=== PATIENT | female | born 1945 | race Two or more races ===

== ENCOUNTER 2018-01-09 09:00 | Outpatient (RCR) | payer OTHER ==
--- NOTE | 2018-01-06 09:13 | RS.OPPTEV2 ---
Date of Note: 01/02/18 Visit #: 1 Date of Evaluation: 01/02/18 Payer Source: MEDICARE Surgery Performed?: No Treatment Diagnosis: OA of spine, numbness and tingling B hands, pain B hands History of Condition/Mechanism of Injury:: pt reports began having burning/ electric pain B hands began in 05/2017 but has gotten much worse in last few weeks. Prior Level of Function.....Patient was independent with: ADL's, Self Care, Caregiving, Ambulation/Mobility, Community Integration/Access Functional Limitations: Self Care, Reaching, Pushing, Lifting, Carrying Current Subjective/complaints:: pt states that she has been having numbness, tingling as well as electric pain B hands. 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 Hx Home Medications: lisinopril, Vitamin D, Ibuprofen, aspirin, Patient's Goals: Decreased electric pain Pain Assessment - Pain Description Pain Location: B hands Pain Description: Burning Current Pain Intensity: 7/10 Functional Outcome Measure UE Functional Index: 52 (35%) - G Codes & Severity Modifier G Codes & Modifier: carrying, moving, and handling objects. Current CJ. Goal CI Source of G Code score: UE functional index Observation - Observation Inspection: R shld is elevated. LLE is longer Posture: Forward Head, Rounded Shoulders, Increased Thoracic Kyphosis, Decreased Lumbar Lordosis Gait - Gait Pattern General Gait Pattern Observation: Antalgic Gait Gait Comments: pt with antalgic gait due to L knee pain. pt states she is planning to have TKR when her hands are better. General Range of Motion: BUE WFL's. BLE WFL's except L knee due to pain Muscle Strength: RLE 5/5,. LLE hip flex 4+/5, knee flex/ext 3+/5, ankle DF/PF 4 +/5. BUE shld flex 3/5, elbow flex/ext 3+/5, decreased woods manager - ROM Cervical Spine Range of Motion Limitations: Soft Tissue Tightness, Muscle Weakness Comments: Cervical ROM WFL's with min pain with side bending. - Special Tests Foraminal Distraction: Negative Foraminal Compression: Negative Left, Negative Right State Pilot Strength Left Hand State Pilot Strength: 34 Right Hand State Pilot Strength: 38 Dynamometer Testing Position: 2nd Position Palpation Palpation Findings: Tenderness, Trigger Point (upper traps, along spine of scapula. ) Sensation - Sensation Right Lower Extremity: Intact/Normal Left Lower Extremity: Intact/Normal Comments: pt reports "electric"pain B hands along with n/t B hands Balance - Sitting Balance Static Sitting Balance: Normal Dynamic Sitting Balance: Normal - Standing Balance Static Standing Balance: Good Dynamic Standing Balance: Good - Heat/Cryotherapy Treatment: Hot Pack (cervical spine and shlds) Interventions - Exercise/Activities/Manual Therapy Exercises/Activities: pt performed cervical ROM, chin tucks, scapular retraction , shld shrugs Manual Therapy: n/a HOME EXERCISE PROGRAM: pt given written HEP including chin tucks, gentle cervical ROM, scapular retraction, shld shrugs - Charges Timed Code Treatment Minutes: 48 Total Treatment Time: 60 Procedures billed for this date of service:: eval med, hot pack EVALUATION COMPLEXITY LEVEL EVALUATION COMPLEXITY LEVEL: HISTORY: Medium (HTN, OA, pain B hands), EXAM OF BODY SYSTEMS: Medium (pain, decreased sensation, weakness), CLINICAL PRESENTATION: Medium (evolving), CLINICAL DECISION MAKING: Medium Assessment Assessment: pt presents with radiculopathy BUE, cervical pain, muscle weakness, due to cervical spurring and narrowing. Patient Education: Education of diagnosis, Home Exercise Program, Education of Plan of Care Rehab Potential: Good Short Term Goals Goal #1: pt report decreased pain B hands <5/10 Goal to be met by: 01/23/18 Goal #2: pt with ROM WFL's cervical spine with decreased pain Goal to be met by: 01/23/18 Cyber Defense Incident Responder Goals Goal #1: pt report decreased pain <4/10 BUE and cervical spine Goal to be met by: 02/13/18 Goal #2: pt report ability to perform functional activities with BUE with less pain Goal to be met by: 02/13/18 Goal #3: pt independent with HEP Goal to be met by: 02/13/18 Goal #4: Improvement in UE functional index score > 65 Goal to be met by: 02/13/18 Plan - Treatment to be Provided Procedures: Therapeutic Exercises, Therapeutic Activity, Neuromuscular Rehab, Manual Therapy, Massage, Patient Education Modalities: Electrical Stimulation, Ultrasound/Phonophoresis, Class IV Laser, Cryotherapy, Hot Packs - Treatment Plan Frequency: 2 X week Duration: 6 weeks ORDER # VISITS AND/OR THROUGH DATE: 02/13/18 - Treatment Code (1) Cervical radicular pain Code(s): M54.12 - RADICULOPATHY, CERVICAL REGION (2) Cervical stenosis of spinal canal Code(s): M48.02 - SPINAL STENOSIS, CERVICAL REGION (3) Muscle weakness Code(s): M62.81 - MUSCLE WEAKNESS (GENERALIZED)
--- NOTE | 2018-01-07 11:06 | RS.OPPTDN ---
Subjective Date of Note: 01/07/18 Visit #: 2 Date of Evaluation: 01/02/18 Payer Source: MEDICARE Treatment Diagnosis: OA of spine, numbness and tingling B hands, pain B hands Current Subjective/complaints:: Patient reports she has an MRI yesterday but does not have a f/u appt with physician until January. *Precautions: n/a Pain Assessment - Pain Description Pain Location: Bilateral hands, upper traps Pain Description: tingling B hands, soreness upper traps - Heat/Cryotherapy Treatment: Hot Pack ([id number] to the bilateral upper traps and base of cervical spine. Patient in sitting. ) Interventions - Exercise/Activities/Manual Therapy Exercises/Activities: Assisted cervical ROM with focus on lateral flexion. Active chin tucks, scapular retraction, shld shrugs. Isometric cervical retraction. Passive stretching of anterior chest with towel roll along mid thoracic spine. Total minutes of Exercise: 12mins Manual Therapy: Trigger point release to the bilateral traps, cervical paraspinals, scalenes, and posterior shoulder joint at infraspinatus. Manual therapy to mid scapular muscles to release tension. Total minutes of Manual Therapy: 12mins HOME EXERCISE PROGRAM: pt given written HEP including chin tucks, gentle cervical ROM, scapular retraction, shld shrugs. Isometric cervical retraction at wall with pillow. - Charges Timed Code Treatment Minutes: 24mins Total Treatment Time: 44mins Procedures billed for this date of service:: HP, MT, EX Assessment: Patient motivated to work on HEP. Will need to have MRI results to further plan progression of treatment. Patient Education: Body/Joint mechanics, Home Exercise Program, Home Safety Patient demonstrates compliance with HEP?: Yes Short Term Goals Goal #1: pt report decreased pain B hands <5/10 Goal to be met by: 01/23/18 Goal #2: pt with ROM WFL's cervical spine with decreased pain Goal to be met by: 01/23/18 M[facility] Goals Goal #1: pt report decreased pain <4/10 BUE and cervical spine Goal to be met by: 02/13/18 Goal #2: pt report ability to perform functional activities with BUE with less pain Goal to be met by: 02/13/18 Goal #3: pt independent with HEP Goal to be met by: 02/13/18 Progress towards goal: Progressing Goal #4: Improvement in UE functional index score > 65 Goal to be met by: 02/13/18 Plan PLAN OF CARE EXPIRES ON:: 02/13/18 ORDER # VISITS AND/OR THROUGH DATE: 02/13/18 PLAN: Progress with HEP following MRI results.
--- NOTE | 2018-01-09 09:43 | RS.CSNOTE ---
PT Case Note Date of Note: 01/08/18 Note: Spoke with Loulou with Loulou Holliday C2 TACTICAL ANALYSIS TECHNICIAN office and she stated that is was Ok to begin gentle cervical traction with patient.
--- NOTE | 2018-01-09 15:10 | RS.OPPTDN ---
Subjective Date of Note: 01/09/18 Visit #: 3 Date of Evaluation: 01/02/18 Payer Source: MEDICARE Treatment Diagnosis: OA of spine, numbness and tingling B hands, pain B hands Current Subjective/complaints:: Patient says her pain is severe to her neck and has tingling and numbness to all fingers on both hands. She says she is eager to try traction in order to gain relief. She says she has not had MRI results explained to her and would like to move her MD appointment closer so that she is able to hear the results. *Precautions: n/a Pain Assessment - Pain Description Pain Location: Patient does not rate, but says her neck bothers her all the time and has had difficulties for a long period of time. - Heat/Cryotherapy Treatment: Hot Pack (20 mins cervical in supine) - Traction Treatment Method: Mechanical, Intermittent, Cervical Patient Position: Supine Amount of Force Applied: 12 Hold Time: 25 Rest Time: 5 Duration of treatment: 12 Interventions - Exercise/Activities/Manual Therapy Exercises/Activities: Patient and spouse instructed in gentle ROM of cspine, she performs shoulder shrugs and scap adduction at EOB. Discussed traction indications/treatment and benefits. Manual Therapy: na HOME EXERCISE PROGRAM: pt given written HEP including chin tucks, gentle cervical ROM, scapular retraction, shld shrugs. Isometric cervical retraction at wall with pillow. - Charges Timed Code Treatment Minutes: 20 Total Treatment Time: 35 Procedures billed for this date of service:: hp, mechanical traction Assessment: Patient continues with moderate to severe cervical and UT pain with radicular symptoms to the bilateral hands. She appears attentive, along with , about receiving traction treatment. She will be attempting to gain a sooner appt with MD to discuss MRI results. She demetra traction well today at gentle poundage per Loulou Holliday. She verbalizes slight increase in tingling to the R hand, but is not enough to bother her. She may see improvement with progressing cervical traction. Patient Education: Education of diagnosis, Body/Joint mechanics, Home Exercise Program, Home Safety, Education of Plan of Care Short Term Goals Goal #1: pt report decreased pain B hands <5/10 Goal to be met by: 01/23/18 Goal #2: pt with ROM WFL's cervical spine with decreased pain Goal to be met by: 01/23/18 Mcfp Goals Goal #1: pt report decreased pain <4/10 BUE and cervical spine Goal to be met by: 02/13/18 Goal #2: pt report ability to perform functional activities with BUE with less pain Goal to be met by: 02/13/18 Goal #3: pt independent with HEP Goal to be met by: 02/13/18 Progress towards goal: Progressing Goal #4: Improvement in UE functional index score > 65 Goal to be met by: 02/13/18 Plan PLAN OF CARE EXPIRES ON:: 02/13/18 ORDER # VISITS AND/OR THROUGH DATE: 02/13/18 PLAN: Patient to continue with gentle traction as able
--- NOTE | 2018-01-10 14:24 | RS.CSNOTE ---
PT Case Note Date of Note: 01/10/18 Note: Received call from Loulou with DR. Miller and she stated Dr. Miller reviewed pt' s MRI and has decided to hold PT until we receive futher orders from him. Called pt and notified her that MD ordered to hold PT at this time and she verbalized understanding. Will await new order from .
--- NOTE | 2018-01-16 09:41 | RS.OPPTDC ---
Date of Discharge: 01/09/18 Date of Evaluation: 01/02/18 Number of Visits: 3 Treatment Diagnosis: OA of spine, numbness and tingling B hands, pain B hands Current Level of Function: pt continues with severe neck pain with radiating pain B hands. pt had MRI and awaiting MD appt to hear results. Current Complaints/Gains: pt continues with c/o "electric" pains in B hands. pt also noticing n/t foot. Pain Assessment - Pain Description Pain Location: neck radiating in hands Pain Description: Burning, Sharp Other Comments regarding Pain:: pt does not rate pain, however has pain constantly and limits her ability to perform daily activity. Functional Outcome Measure - G Codes & Severity Modifier G Codes & Modifier: carrying/moving goal CI. carrying/moving dc CJ Source of G Code score: functional ability and UE functional index Observation - Observation Posture: Forward Head, Rounded Shoulders, Increased Thoracic Kyphosis Handedness: Right Gait - Gait Pattern General Gait Pattern Observation: Antalgic Gait Gait Comments: antalgic gait due to pain in knee/hip General Range of Motion: BUE WFL's with pain. BLE WFL's Muscle Strength: Not tested on dc Interventions - Exercise/Activities/Manual Therapy Exercises/Activities: n/a Manual Therapy: na HOME EXERCISE PROGRAM: pt given written HEP including chin tucks, gentle cervical ROM, scapular retraction, shld shrugs. Isometric cervical retraction at wall with pillow. - Charges Timed Code Treatment Minutes: n/a Total Treatment Time: n/a Procedures billed for this date of service:: n/a Assessment Assessment: pt unable to meet goals due to dc per MD. pt MRI showed severe stenosis. MD ordered to stop PT. pt reports to PT on 01/16/18 that she is scheduled for surgery on 02/04/18. Patient Education: Home Exercise Program, Education of Plan of Care Rehab Potential: Fair Short Term Goals Goal #1: pt report decreased pain B hands <5/10 Goal to be met by: 01/23/18 Progress towards Goal:: Not Met Goal #2: pt with ROM WFL's cervical spine with decreased pain Goal to be met by: 01/23/18 Progress towards Goal:: Not Met Body Welder Goals Goal #1: pt report decreased pain <4/10 BUE and cervical spine Goal to be met by: 02/13/18 Progress towards goal: Not Met Goal #2: pt report ability to perform functional activities with BUE with less pain Goal to be met by: 02/13/18 Progress towards goal: Not Met Goal #3: pt independent with HEP Goal to be met by: 02/13/18 Progress towards goal: Not Met Goal #4: Improvement in UE functional index score > 65 Goal to be met by: 02/13/18 Progress towards goal: Not Met Plan Reason for Discharge:: ordered to dc PT.
== END 2018-01-22 ==
PROVIDERS: ATTEND Nurse Practitioner Family
DX: M47.9 Spondylosis, unspecified (principal); R20.0 Anesthesia of skin; R20.2 Paresthesia of skin; R52 Pain, unspecified

== ENCOUNTER 2018-03-24 09:00 | Outpatient (RCR) ==
--- NOTE | 2018-03-20 15:29 | RS.OPPTEV2 ---
Date of Note: 03/20/18 Visit #: 1 Date of Evaluation: 03/20/18 Payer Source: MEDICARE Surgery Performed?: Yes Procedure Performed: C3,4 and C4,5 anterior cervical discectomy with insertion of interbody arthrodesis. Date of Procedure: 02/04/18 Treatment Diagnosis: Neck pain, radicular UE pain, bilateral UE weakness, s/p surgery History of Condition/Mechanism of Injury:: Pt reports symptoms of burning/ electric pain B hands began in 05/2017. States symptoms continued to get worse. She reports that she had more tests, that found she had pressure on her spinal cord, and she was sent for surgery. Prior Level of Function.....Patient was independent with: ADL's, Self Care, Caregiving, Ambulation/Mobility, Community Integration/Access Level of Function: Prior to the onset of her symptoms in 2016, she was fully independent in all daily activities and reports being very strong. Functional Limitations: Sleep, Self Care, ADL's, Reaching, Pushing, Pulling, Lifting, Carrying, Sitting, Community Access/Integration Current Subjective/complaints:: Mrs. Gutierrez states she continues to have tingling and electricity sensations into both UE's. States she just began taking gabapentin yesterday. Reports both UE's are weak and hands are very sensitive. Reports neck stiffness and discomfort. States starting today, she is just wearing the neck brace when she rides in a car. So far, she is doing well out of the brace today. States last night was her first night to sleep without the brace. States she did well because she used pillows to support her neck. Reports pain and tenderness into the right neck and shoulder. Reports stiffness in her shoulders, especially the right. She is unable to button or zip clothing due to numbness in her fingers. Also reports weakness in her student financial aid manager and UE's. States she is currently on a 10 pound weight limit. She is using a rolling walker because of right hip and knee pain. *Precautions: Cervical spine fusion 02/04/18 Medical History Medical History: Hypertension, Arthritis Surgical History: Hip Replacement Surgical History Comments:: carpal tunnel repair B hands, achilles tendon repair LLE, THR LLE Smoking Status: Former smoker Hx Home Medications: gabapentin (just started), linaclotide,lisinopril, percocet Patient's Goals: She reports wanting to get resolution of UE "electrical pain/ tingling". Pain Assessment - Pain Description Pain Location: Pain and numbness in hands Pain Description: "electricity/tingling" Current Pain Intensity: 8/10 Worst Pain Intensity: 10/10 Functional Outcome Measure UE Functional Index: 49 (49/80=38.75% impairment) - G Codes & Severity Modifier G Codes & Modifier: Carry current CK. Carry goal CI. * these are based on presentation in department Source of G Code score: Self scores UE functional index. G codes based on her presentation in the department due to limited neck ROM, UE ROM, and weakness. Observation - Observation Inspection: Patient demonstrates a well-healing horizontal incision to the anterior cervical spine. Posture: Forward Head, Rounded Shoulders, Scapula Asymmetry (right scapula elevated) Handedness: Right Gait - Gait Pattern Gait Comments: Patient ambulating with a rolling walker. She is independent and presents to be steady with her ambulation in the department. States she is using it because the right knee is arthritic and she needs a TKA. Also reports tingling in both feet. Transfers independently. - ROM Comments: Cervical AROM not assessed due to patient just 6 weeks s/p surgery. Bilateral UE flexion and abduction to 90-95 degrees. - Strength Comments: Bilateral shoulders 4-/5, triceps 3+/5, biceps 4/5, wrists 4/5. Him Tech Strength Left Hand Him Tech Strength: 20 lbs. Right Hand Him Tech Strength: 52 lbs. Dynamometer Testing Position: 2nd Position Palpation Comments:: Patient demonstrates moderate increased muscle tone along bilateral cervical paraspinals, the right upper traps, levator scapula, and rhomboids. She reports tenderness to these areas, especially along the superior and medial border of the right scapula. Sensation - Sensation Comments: Reports slight impaired sensation bilateral medially along the forearms. Describes tingling and numbness along the dorsum of all digits and entire palmar aspect of both hands. Coordination - Tests Bilateral Finger to Nose: Normal/Intact Interventions - Exercise/Activities/Manual Therapy Exercises/Activities: Discussed body mechanics and safe lifting for up to 10 lbs. Instructed in scapular retraction and gave patient yellow theraputty for student financial aid manager and desensitization. Total minutes of Exercise: X 12 mins Manual Therapy: Performed manual therapy X 13 mins to bilateral cervical paraspinals, upper and middle traps. Emphasis on right side as active trigger points are found with increased muscle guarding along the superior and medial border of the scapula. HOME EXERCISE PROGRAM: Scapular retraction, yellow therapy putty for student financial aid manager - Charges Timed Code Treatment Minutes: 25 mins Total Treatment Time: 55 mins Procedures billed for this date of service:: Evaluation medium, manual therapy EVALUATION COMPLEXITY LEVEL EVALUATION COMPLEXITY LEVEL: HISTORY: Medium (Chronic neck pain and UE symptoms , Cerv surgery), EXAM OF BODY SYSTEMS: Medium (Strength, ROM, Sensation disturbances, impaired ADL's), CLINICAL PRESENTATION: Medium, CLINICAL DECISION MAKING: Medium Assessment Assessment: Patient presents six weeks s/p cervical spine surgery. She reports continued neck and UE pain, as well as continued UE numbness and tingling. She demonstrates limited functional cervical AROM, UE AROM, and general weakness of the UE's. She demonstrates good potential to benefit from skilled therapy to address muscle guarding and pain, and progress exercises appropriately to regain functional AROM and strength of the cervical spine and UE's. Patient Education: Education of diagnosis, Body/Joint mechanics, Home Exercise Program, Home Safety, Activity Modification, Education of Plan of Care Rehab Potential: Good Short Term Goals Goal #1: Bilateral hand pain decreased to <5/10 Goal to be met by: 04/03/18 Goal #2: Muscle tone along right upper traps decreased to minimal. Goal to be met by: 04/03/18 Goal #3: UE AROM WFL's to perform ADL's with minimal difficulty. Goal to be met by: 04/03/18 Fertilizer Applicator Goals Goal #1: Pt knows HEP and to continue ex's to maintain functional level at D/C. Goal to be met by: 04/29/18 Goal #2: Score on UE functional index improved to 19% impairment or less. Goal to be met by: 04/29/18 Goal #3: Pt able to perform all selfcare and ADL's without difficulty or pain. Goal to be met by: 04/29/18 Goal #4: Pt will demonstrate good postural awareness. Goal to be met by: 04/29/18 Plan - Treatment to be Provided Procedures: Therapeutic Exercises, Therapeutic Activity, Neuromuscular Rehab, Manual Therapy, Massage, Patient Education Modalities: Electrical Stimulation, Ultrasound/Phonophoresis, Class IV Laser, Cryotherapy, Hot Packs - Treatment Plan Frequency: 3 X week Duration: 4 weeks ORDER # VISITS AND/OR THROUGH DATE: 04/29/18 - Treatment Code (1) Neck pain Code(s): M54.2 - CERVICALGIA Comments: M54.2 (2) Numbness and tingling in both hands Code(s): R20.2 - PARESTHESIA OF SKIN Comments: R20.2 (3) Bilateral arm weakness Code(s): M62.81 - MUSCLE WEAKNESS (GENERALIZED) Comments: M62.81 R29.898 (4) Other specified postprocedural states Code(s): Z98.89 - OTHER SPECIFIED POSTPROCEDURAL STATES * DO NOT USE * Comments: Z98.890 s/p cervical spine surgery
--- NOTE | 2018-03-24 09:54 | RS.OPPTDN ---
Subjective Date of Note: 03/24/18 Visit #: 2 Date of Evaluation: 03/20/18 Payer Source: MEDICARE Treatment Diagnosis: Neck pain, radicular UE pain, bilateral UE weakness, s/p surgery Current Subjective/complaints:: Patient enters clinic without neck brace on.She reports being on the gabapentin for about 5 days ,with no noticeable change yet. *Precautions: Cervical spine fusion 02/04/18 Pain Assessment - Pain Description Pain Location: cervical/both UE's Pain Description: Radiating Pain Description: not rated Other Comments regarding Pain:: tightness in the neck pain ,but tingling in the arms - Treatment Modality: Electrical Stim Unattended Parameters/Method Applied: 20 mins. ,2 large electrodes on each upper trap area, high vot @ 135 -150 pv Patient Position: Sitting - Heat/Cryotherapy Treatment: Hot Pack (concurrent with e-stim) Interventions - Exercise/Activities/Manual Therapy Exercises/Activities: Discussed body mechanics and safe lifting for up to 10 lbs. Instructed in scapular retraction and gave patient yellow theraputty for nurse emergency room and desensitization. Manual Therapy: Performed manual therapy X 20 mins to bilateral cervical paraspinals, upper and middle traps. Total minutes of Manual Therapy: 20 HOME EXERCISE PROGRAM: Scapular retraction, yellow therapy putty for nurse emergency room - Charges Timed Code Treatment Minutes: 40 Total Treatment Time: 40 Procedures billed for this date of service:: hp,e-stim ,manual therapy Assessment: Patient has increased muscle tone in upper traps and occipital region ,trigger point sensitivity greater on the R side today ,at the superior/ medial scapular borderShe has good safety awareness,understands to avoid aggressive exercise or activity at this time. Patient Education: Body/Joint mechanics, Home Safety, Activity Modification, Education of Plan of Care Short Term Goals Goal #1: Bilateral hand pain decreased to <5/10 Goal to be met by: 04/03/18 Goal #2: Muscle tone along right upper traps decreased to minimal. Goal to be met by: 04/03/18 Goal #3: UE AROM WFL's to perform ADL's with minimal difficulty. Goal to be met by: 04/03/18 Detention Goals Goal #1: Pt knows HEP and to continue ex's to maintain functional level at D/C. Goal to be met by: 04/29/18 Goal #2: Score on UE functional index improved to 19% impairment or less. Goal to be met by: 04/29/18 Goal #3: Pt able to perform all selfcare and ADL's without difficulty or pain. Goal to be met by: 04/29/18 Goal #4: Pt will demonstrate good postural awareness. Goal to be met by: 04/29/18 Plan PLAN OF CARE EXPIRES ON:: 04/29/18 ORDER # VISITS AND/OR THROUGH DATE: 04/29/18 PLAN: Continue skilled PT to decrease cervical pain,increase cervical ROM , improve postural awareness to protect the C-spine.
== END 2018-03-24 23:59 ==
PROVIDERS: ATTEND Nurse Practitioner Family
DX: M47.12 Other spondylosis with myelopathy, cervical region (principal); M54.2 Cervicalgia; G89.29 Other chronic pain; R20.2 Paresthesia of skin; R20.0 Anesthesia of skin; M54.9 Dorsalgia, unspecified; M47.9 Spondylosis, unspecified; R52 Pain, unspecified; R29.898 Other symptoms and signs involving the musculoskeletal system

== ENCOUNTER 2018-04-11 09:00 | Outpatient (RCR) ==
--- NOTE | 2018-03-26 10:31 | RS.OPPTDN ---
Subjective Date of Note: 03/26/18 Visit #: 3 Date of Evaluation: 03/20/18 Payer Source: MEDICARE Treatment Diagnosis: Neck pain, radicular UE pain, bilateral UE weakness, s/p surgery Current Subjective/complaints:: Patient reports relief in the neck immediately after the PT sessions,but no relief yet from the tingling in the UE's and hands. *Precautions: Cervical spine fusion 02/04/18 Pain Assessment - Pain Description Pain Location: cervical/UE 's Pain Description: Radiating Pain Description: tingling is constant in both arms and hands Other Comments regarding Pain:: Reports the fingertips feel , "slick . " - Treatment Modality: Electrical Stim Unattended Parameters/Method Applied: 20 mins. high volt to upper traps.,2 large electrodes,@140 pv. Patient Position: Sitting - Heat/Cryotherapy Treatment: Hot Pack (concurrent with e-stim) Interventions - Exercise/Activities/Manual Therapy Exercises/Activities: Review only for safety precautions ,lifting restrictions , and instructed in gentle chin tucks. Total minutes of Exercise: 0 Manual Therapy: Performed manual therapy X 20 mins to bilateral cervical paraspinals, upper and middle traps. Total minutes of Manual Therapy: 20 HOME EXERCISE PROGRAM: Scapular retraction, yellow therapy putty for hvac technician - Charges Timed Code Treatment Minutes: 40 Total Treatment Time: 40 Procedures billed for this date of service:: hp,e-stim,manual 1 Assessment: Patient reports less tightness with gentle cervical motion and scapular pro/retraction today,but no change in the radiculopathy in both UE's and hands. Patient Education: Education of diagnosis, Body/Joint mechanics, Home Exercise Program, Home Safety, Activity Modification, Education of Plan of Care Short Term Goals Goal #1: Bilateral hand pain decreased to <5/10 Goal to be met by: 04/03/18 Progress towards Goal:: No Change Goal #2: Muscle tone along right upper traps decreased to minimal. Goal to be met by: 04/03/18 (has tenderness present in trigger point along the medial border of scapula) Progress towards Goal:: Progressing Goal #3: UE AROM WFL's to perform ADL's with minimal difficulty. Goal to be met by: 04/03/18 Progress towards Goal:: Progressing Care Home Goals Goal #1: Pt knows HEP and to continue ex's to maintain functional level at D/C. Goal to be met by: 04/29/18 Goal #2: Score on UE functional index improved to 19% impairment or less. Goal to be met by: 04/29/18 Goal #3: Pt able to perform all selfcare and ADL's without difficulty or pain. Goal to be met by: 04/29/18 Goal #4: Pt will demonstrate good postural awareness. Goal to be met by: 04/29/18 Plan PLAN OF CARE EXPIRES ON:: 04/29/18 ORDER # VISITS AND/OR THROUGH DATE: 04/29/18 PLAN: Continue skilled PT to improve cervical motion ,decrease pain ,educate patient on joint protection due to fusion.
--- NOTE | 2018-03-28 10:30 | RS.OPPTDN ---
Subjective Date of Note: 03/28/18 Visit #: 4 Date of Evaluation: 03/20/18 Payer Source: MEDICARE Treatment Diagnosis: Neck pain, radicular UE pain, bilateral UE weakness, s/p surgery Current Subjective/complaints:: Patient reports the neck and shoulders feel slightly 'looser ", referring to when sh turns her head.The tingling in the arms is unchanged. *Precautions: Cervical spine fusion 02/04/18 Pain Assessment - Pain Description Pain Location: neck and shoulders Pain Description: Tightness Current Pain Intensity: 3-4 - Treatment Modality: Electrical Stim Unattended Parameters/Method Applied: 20 mins. high volt ,2 large electrodes to upper trpas ,@ 120 pv. Patient Position: Sitting - Heat/Cryotherapy Treatment: Hot Pack (concurrent with e-stim) Interventions - Exercise/Activities/Manual Therapy Exercises/Activities: Review for safety precautions ,lifting restrictions ,and instructed in gentle chin tucks.Instructed to do all cervical motions in PAIN FREE ROM . Total minutes of Exercise: 0 Manual Therapy: Performed manual therapy X 20 mins to bilateral cervical paraspinals, upper and middle traps. Total minutes of Manual Therapy: 20 HOME EXERCISE PROGRAM: Scapular retraction, yellow therapy putty for dress draper - Charges Timed Code Treatment Minutes: 40 Total Treatment Time: 40 Procedures billed for this date of service:: hp,e-stim,manual Assessment: Patient has decreased tone in the upper traps today,but still has more tone along the R scapular boder.She has no change in tingling alessandra the UE's ,but understands this may take longer due to recency of the surgery. Patient Education: Body/Joint mechanics, Home Safety, Education of Plan of Care Short Term Goals Goal #1: Bilateral hand pain decreased to <5/10 Goal to be met by: 04/03/18 Progress towards Goal:: No Change Goal #2: Muscle tone along right upper traps decreased to minimal. Goal to be met by: 04/03/18 (has tenderness present in trigger point along the medial border of scapula) Progress towards Goal:: Progressing Goal #3: UE AROM WFL's to perform ADL's with minimal difficulty. Goal to be met by: 04/03/18 Progress towards Goal:: Progressing Shirt Ironer Supervisor Goals Goal #1: Pt knows HEP and to continue ex's to maintain functional level at D/C. Goal to be met by: 04/29/18 Progress towards goal: Progressing Goal #2: Score on UE functional index improved to 19% impairment or less. Goal to be met by: 04/29/18 Goal #3: Pt able to perform all selfcare and ADL's without difficulty or pain. Goal to be met by: 04/29/18 Goal #4: Pt will demonstrate good postural awareness. Goal to be met by: 04/29/18 Progress towards goal: Progressing Plan PLAN OF CARE EXPIRES ON:: 04/29/18 ORDER # VISITS AND/OR THROUGH DATE: 04/29/18 PLAN: Continue PT to increase cervical ROM ,reduce pain when doing ADL's.
--- NOTE | 2018-03-31 10:55 | RS.OPPTDN ---
Subjective Date of Note: 03/31/18 Visit #: 54 Date of Evaluation: 03/20/18 Payer Source: MEDICARE Treatment Diagnosis: Neck pain, radicular UE pain, bilateral UE weakness, s/p surgery Current Subjective/complaints:: Reports having a busy weekend ,hurting , " a litte more " today.The tingling in the UE's and hands is consistent. *Precautions: Cervical spine fusion 02/04/18 Pain Assessment - Pain Description Pain Location: UE's ,hands , and cervical Pain Description: Tightness, Radiating Pain Description: soreness in cervical Current Pain Intensity: 4-5 - Treatment Modality: Electrical Stim Unattended Parameters/Method Applied: 20 mins. high volt to bilateral upper traps ,2 large electrodes @145 pv. Patient Position: Sitting - Heat/Cryotherapy Treatment: Hot Pack (concurrent with e-stim) Interventions - Exercise/Activities/Manual Therapy Exercises/Activities: Review for safety precautions ,lifting restrictions. 2/10 each exercise today. gentle chin tucks,cervical motions in PAIN FREE ROM , including rotation to L and R x 10 reps. each.Scapular pro/retraction in sitting. Total minutes of Exercise: 20 Manual Therapy: Performed manual therapy X 20 mins to bilateral cervical paraspinals, upper and middle traps. Total minutes of Manual Therapy: 20 HOME EXERCISE PROGRAM: Scapular retraction, yellow therapy putty for travel rn - Charges Timed Code Treatment Minutes: 60 Total Treatment Time: 60 Procedures billed for this date of service:: hp,e-stim,ex ,manual Assessment: Patient has decreased tone along the medial border of R scapula.He cervical roation is less guarded today ,and symmetrical @ 45-50 degrees.She reports the cerpitus is intermittent today with cervical rotation being done.She has good safety awareness. Patient Education: Education of diagnosis, Body/Joint mechanics, Home Exercise Program, Home Safety, Activity Modification, Education of Plan of Care Patient demonstrates compliance with HEP?: Yes Short Term Goals Goal #1: Bilateral hand pain decreased to <5/10 Goal to be met by: 04/03/18 Progress towards Goal:: No Change Goal #2: Muscle tone along right upper traps decreased to minimal. Goal to be met by: 04/03/18 Progress towards Goal:: Progressing Goal #3: UE AROM WFL's to perform ADL's with minimal difficulty. Goal to be met by: 04/03/18 Progress towards Goal:: Progressing Inspector Final Assembly Mechanical Goals Goal #1: Pt knows HEP and to continue ex's to maintain functional level at D/C. Goal to be met by: 04/29/18 Progress towards goal: Progressing Goal #2: Score on UE functional index improved to 19% impairment or less. Goal to be met by: 04/29/18 Goal #3: Pt able to perform all selfcare and ADL's without difficulty or pain. Goal to be met by: 04/29/18 Progress towards goal: Progressing Comments: neck is better ,butnochange in the radiculopathy Goal #4: Pt will demonstrate good postural awareness. Goal to be met by: 04/29/18 Progress towards goal: Progressing Plan PLAN OF CARE EXPIRES ON:: 04/29/18 ORDER # VISITS AND/OR THROUGH DATE: 04/29/18 PLAN: Continue skilled PT to improve cervical motion with less guarding and pain.
--- NOTE | 2018-04-02 10:14 | RS.OPPTDN ---
Subjective Date of Note: 04/02/18 Visit #: 6 Date of Evaluation: 03/20/18 Payer Source: MEDICARE Treatment Diagnosis: Neck pain, radicular UE pain, bilateral UE weakness, s/p surgery Current Subjective/complaints:: Reports she has had a brief period of less tingling in the UE's when in bed ,but returns when upright position.She feels the neck feels less tight . *Precautions: Cervical spine fusion 02/04/18 Pain Assessment - Pain Description Pain Location: cerivcal/UT's,UE's. Current Pain Intensity: 3 in neck Other Comments regarding Pain:: not rated in UE's ,but less intense - Treatment Modality: Electrical Stim Unattended Parameters/Method Applied: 20 mins. high volt to cervical/UT's,2 large electrodes @ 145 pv Patient Position: Sitting - Heat/Cryotherapy Treatment: Hot Pack (concurrent with e-stim) Interventions - Exercise/Activities/Manual Therapy Exercises/Activities: Review for safety precautions ,lifting restrictions. 2/10 each exercise today. gentle chin tucks,cervical motions in PAIN FREE ROM , including rotation to L and R x 10 reps. each.Scapular pro/retraction in sitting. Total minutes of Exercise: 25 Manual Therapy: Performed manual therapy X 20 mins to bilateral cervical paraspinals, upper and middle traps. Total minutes of Manual Therapy: 20 HOME EXERCISE PROGRAM: Scapular retraction, yellow therapy putty for corporate relations manager - Objective Findings Observations,measurements,etc.: Cervical rotation to L @ 60 degrees actively , 50 degrees actively to R - Charges Timed Code Treatment Minutes: 65 Total Treatment Time: 65 Procedures billed for this date of service:: hp,e-stim,ex 2 ,manual Assessment: Patint progressing ,reports less intensity of tingling pain in the UE's,along with this being intermittent ,as opposed to constantly present.She has decreased muscle tone and less tender in the upper traps. today. Patient Education: Education of diagnosis, Body/Joint mechanics, Home Exercise Program, Home Safety, Activity Modification, Education of Plan of Care Patient demonstrates compliance with HEP?: Yes Short Term Goals Goal #1: Bilateral hand pain decreased to <5/10 Goal to be met by: 04/03/18 Progress towards Goal:: Progressing Goal #2: Muscle tone along right upper traps decreased to minimal. Goal to be met by: 04/03/18 Progress towards Goal:: Progressing Goal #3: UE AROM WFL's to perform ADL's with minimal difficulty. Goal to be met by: 04/03/18 Progress towards Goal:: Progressing Manager Transplant Goals Goal #1: Pt knows HEP and to continue ex's to maintain functional level at D/C. Goal to be met by: 04/29/18 Progress towards goal: Progressing Goal #2: Score on UE functional index improved to 19% impairment or less. Goal to be met by: 04/29/18 Goal #3: Pt able to perform all selfcare and ADL's without difficulty or pain. Goal to be met by: 04/29/18 Progress towards goal: Progressing Goal #4: Pt will demonstrate good postural awareness. Goal to be met by: 04/29/18 Progress towards goal: Progressing Plan PLAN OF CARE EXPIRES ON:: 04/29/18 ORDER # VISITS AND/OR THROUGH DATE: 04/29/18 PLAN: Continue PT to decrease pain ,improve cervical ROM for necessary ADL's.
--- NOTE | 2018-04-04 09:43 | RS.OPPTDN ---
Subjective Date of Note: 04/04/18 Visit #: 7 Date of Evaluation: 03/20/18 Payer Source: MEDICARE Treatment Diagnosis: Neck pain, radicular UE pain, bilateral UE weakness, s/p surgery Current Subjective/complaints:: Reports the therapy seems to be helping ,less intense tingling in the arms and hands today.Her neck and shoulders are sore.She reports doing her HEP as instructed. *Precautions: Cervical spine fusion 02/04/18 Pain Assessment - Pain Description Pain Location: shoulders,neck Pain Description: Radiating, Dull Pain Description: soreness in neck ,radiating in shoulders and UE's - Treatment Modality: Electrical Stim Unattended Parameters/Method Applied: 20 miws. high volt to UT's,one channel @ 140 - 160 pv. Patient Position: Sitting - Heat/Cryotherapy Treatment: Hot Pack (concurrent with e-stim) Interventions - Exercise/Activities/Manual Therapy Exercises/Activities: N/A Total minutes of Exercise: 0 Manual Therapy: Performed manual therapy X 20 mins to bilateral cervical paraspinals, upper and middle traps. Total minutes of Manual Therapy: 20 HOME EXERCISE PROGRAM: Scapular retraction, yellow therapy putty for warehouse trainer - Charges Timed Code Treatment Minutes: 40 Total Treatment Time: 40 Procedures billed for this date of service:: hp,e-stim,manual Assessment: Patient continues to have less hypertonus in the R uppertraps ,no significant tenderness along the medial bordeer of the scapulae.She has better return demo of HEP ,and improved awareness of her posture ,both in sitting and standing. Patient Education: Education of diagnosis, Body/Joint mechanics, Home Exercise Program, Home Safety, Activity Modification, Education of Plan of Care Patient demonstrates compliance with HEP?: Yes Short Term Goals Goal #1: Bilateral hand pain decreased to <5/10 Goal to be met by: 04/03/18 Progress towards Goal:: Partially Met Goal #2: Muscle tone along right upper traps decreased to minimal. Goal to be met by: 04/03/18 Progress towards Goal:: Partially Met Goal #3: UE AROM WFL's to perform ADL's with minimal difficulty. Goal to be met by: 04/03/18 Progress towards Goal:: Progressing Cleaner Signs Goals Goal #1: Pt knows HEP and to continue ex's to maintain functional level at D/C. Goal to be met by: 04/29/18 Progress towards goal: Partially Met Goal #2: Score on UE functional index improved to 19% impairment or less. Goal to be met by: 04/29/18 Goal #3: Pt able to perform all selfcare and ADL's without difficulty or pain. Goal to be met by: 04/29/18 Progress towards goal: Progressing Goal #4: Pt will demonstrate good postural awareness. Goal to be met by: 04/29/18 Progress towards goal: Progressing Plan PLAN OF CARE EXPIRES ON:: 04/29/18 ORDER # VISITS AND/OR THROUGH DATE: 04/29/18 PLAN: Continue skilled PT to reduce/or eliminate cervical pain ,return to PLOF.
--- NOTE | 2018-04-09 09:58 | RS.OPPTDN ---
Subjective Date of Note: 04/07/18 Visit #: 8 Date of Evaluation: 03/20/18 Payer Source: MEDICARE Treatment Diagnosis: Neck pain, radicular UE pain, bilateral UE weakness, s/p surgery Current Subjective/complaints:: Patient reports improvement with reaching the top of her head for longer time period ,such as shampooing her hair.The tingling in her arms is less when resting in bed,but gradually returnd as the day progresses.She is compliant to [facility]. *Precautions: Cervical spine fusion 02/04/18 Pain Assessment - Pain Description Pain Description: Radiating, Dull, Chronic Pain Description: radiates in UE's /hands Current Pain Intensity: 3 - Heat/Cryotherapy Treatment: Hot Pack (20 mins. prior to manual therapy) Interventions - Exercise/Activities/Manual Therapy Exercises/Activities: N/A Total minutes of Exercise: 0 Manual Therapy: Performed manual therapy X 25 mins to bilateral cervical paraspinals, upper and middle traps. HOME EXERCISE PROGRAM: Scapular retraction, yellow therapy putty for bee raiser - Charges Timed Code Treatment Minutes: 45 Total Treatment Time: 45 Procedures billed for this date of service:: hp,manual 2 Assessment: Progresing well ,continues to have less intense neck and shoulder pain . Patient Education: Education of Plan of Care Patient demonstrates compliance with HEP?: Yes Short Term Goals Goal #1: Bilateral hand pain decreased to <5/10 Goal to be met by: 04/03/18 Progress towards Goal:: Partially Met Goal #2: Muscle tone along right upper traps decreased to minimal. Goal to be met by: 04/03/18 Progress towards Goal:: Partially Met Goal #3: UE AROM WFL's to perform ADL's with minimal difficulty. Goal to be met by: 04/03/18 Progress towards Goal:: Progressing Manager Field Service Goals Goal #1: Pt knows HEP and to continue ex's to maintain functional level at D/C. Goal to be met by: 04/29/18 Progress towards goal: Partially Met Goal #2: Score on UE functional index improved to 19% impairment or less. Goal to be met by: 04/29/18 Goal #3: Pt able to perform all selfcare and ADL's without difficulty or pain. Goal to be met by: 04/29/18 Progress towards goal: Progressing Goal #4: Pt will demonstrate good postural awareness. Goal to be met by: 04/29/18 Progress towards goal: Progressing Plan PLAN OF CARE EXPIRES ON:: 04/29/18 ORDER # VISITS AND/OR THROUGH DATE: 04/29/18 PLAN: Continue PT to decrease pain ,increase strength in cervical/shoulder region for improved ADL's.
--- NOTE | 2018-04-09 10:05 | RS.OPPTDN ---
Subjective Date of Note: 04/09/18 Visit #: 9 Date of Evaluation: 03/20/18 Payer Source: MEDICARE Treatment Diagnosis: Neck pain, radicular UE pain, bilateral UE weakness, s/p surgery Current Subjective/complaints:: Reports the shoulders and neck feel more flexible .The tingling in the hands is the same. *Precautions: Cervical spine fusion 02/04/18 Pain Assessment - Pain Description Pain Description: less intense,less frequent Current Pain Intensity: not rated - Heat/Cryotherapy Treatment: Hot Pack (20 mins. prior to manual ) Interventions - Exercise/Activities/Manual Therapy Exercises/Activities: N/A Total minutes of Exercise: 0 Manual Therapy: Performed manual therapy X 25 mins to bilateral cervical paraspinals, upper and middle traps. Total minutes of Manual Therapy: 25 HOME EXERCISE PROGRAM: Scapular retraction, yellow therapy putty for export manager, gentle pain free cervical ROM in all directions.Do not force cervical extension. - Charges Timed Code Treatment Minutes: 45 Total Treatment Time: 45 Procedures billed for this date of service:: hp,manual therapy 2 Assessment: Much improved tone in th upper traps,no trigger point tenderness today,less guarded motion with cervical motions.We discussed the initiation of D /C plan as she is progressing well. Patient Education: Body/Joint mechanics, Home Safety, Education of Plan of Care Patient demonstrates compliance with HEP?: Yes Short Term Goals Goal #1: Bilateral hand pain decreased to <5/10 Goal to be met by: 04/03/18 Progress towards Goal:: Partially Met Goal #2: Muscle tone along right upper traps decreased to minimal. Goal to be met by: 04/03/18 Progress towards Goal:: Met Goal #3: UE AROM WFL's to perform ADL's with minimal difficulty. Goal to be met by: 04/03/18 Progress towards Goal:: Partially Met Employment Supervisor Goals Goal #1: Pt knows HEP and to continue ex's to maintain functional level at D/C. Goal to be met by: 04/29/18 Progress towards goal: Met Goal #2: Score on UE functional index improved to 19% impairment or less. Goal to be met by: 04/29/18 Goal #3: Pt able to perform all selfcare and ADL's without difficulty or pain. Goal to be met by: 04/29/18 Progress towards goal: Progressing Goal #4: Pt will demonstrate good postural awareness. Goal to be met by: 04/29/18 Progress towards goal: Partially Met Plan PLAN OF CARE EXPIRES ON:: 04/29/18 ORDER # VISITS AND/OR THROUGH DATE: 04/29/18 PLAN: Cont. PT to eliminate or decrease cervical pain ,educate patient for posture and joint protection.
--- NOTE | 2018-04-11 09:51 | RS.OPPTDN ---
Subjective Date of Note: 04/11/18 Visit #: 10 Date of Evaluation: 03/20/18 Payer Source: MEDICARE Treatment Diagnosis: Neck pain, radicular UE pain, bilateral UE weakness, s/p surgery Current Subjective/complaints:: Reports the neck and shoulders feel better, pleased with her progres.The tingling in the hands is about the same,but she realizes the told her this could take a greater time period to improve. *Precautions: Cervical spine fusion 02/04/18 Pain Assessment - Pain Description Pain Location: UE's/hands Pain Description: Radiating - Heat/Cryotherapy Treatment: Hot Pack (20 mins. to cervical) Interventions - Exercise/Activities/Manual Therapy Exercises/Activities: 15 mins. HEP review and return demo of chin tucks, scapular motions,shoulder shrugs ,circles.Rotation to L and R to 55 degrees actively . Total minutes of Exercise: 15 Manual Therapy: Performed manual therapy X 25 mins to bilateral cervical paraspinals, upper and middle traps. Total minutes of Manual Therapy: 25 HOME EXERCISE PROGRAM: Scapular retraction, yellow therapy putty for chief psychologist, gentle pain free cervical ROM in all directions.Do not force cervical extension. - Charges Timed Code Treatment Minutes: 40 Total Treatment Time: 60 Procedures billed for this date of service:: hp,manual 2,ex 1 Assessment: Rehab potential met ,has good understandng of HEP and precautions for the cervical fusion.She is aware of D/C plan today. Patient Education: Education of diagnosis, Body/Joint mechanics, Home Exercise Program, Home Safety, Activity Modification, Education of Plan of Care Patient demonstrates compliance with HEP?: Yes Short Term Goals Goal #1: Bilateral hand pain decreased to <5/10 Goal to be met by: 04/03/18 Progress towards Goal:: Partially Met Goal #2: Muscle tone along right upper traps decreased to minimal. Goal to be met by: 04/03/18 Progress towards Goal:: Met Goal #3: UE AROM WFL's to perform ADL's with minimal difficulty. Goal to be met by: 04/03/18 Progress towards Goal:: Partially Met [facility] Goals Goal #1: Pt knows HEP and to continue ex's to maintain functional level at D/C. Goal to be met by: 04/29/18 Progress towards goal: Met Goal #2: Score on UE functional index improved to 19% impairment or less. Goal to be met by: 04/29/18 (16.25% deficit) Progress towards goal: Met Goal #3: Pt able to perform all selfcare and ADL's without difficulty or pain. Goal to be met by: 04/29/18 Progress towards goal: Partially Met Goal #4: Pt will demonstrate good postural awareness. Goal to be met by: 04/29/18 Progress towards goal: Met Plan PLAN OF CARE EXPIRES ON:: 04/29/18 ORDER # VISITS AND/OR THROUGH DATE: 04/29/18 PLAN: D/C due to good progress.
--- NOTE | 2018-04-14 15:09 | RS.OPPTDC ---
Date of Discharge: 04/11/18 Date of Evaluation: 03/20/18 Number of Visits: 10 Treatment Diagnosis: Neck pain, radicular UE pain, bilateral UE weakness, s/p surgery Current Complaints/Gains: Patient reports doing HEP regularly. reports muscle soreness, but no sharp pain in neck or shoulders. Functional Outcome Measure UE Functional Index: 67 (67/80=16.25% impairment) - G Codes & Severity Modifier G Codes & Modifier: Carry goal CI. Carry D/C CI Source of G Code score: UE functional scale, improvement shown in areas of ability to perform usual house activities, grooming hair, pushing up from bathroom, driving, using appliances, sleeping. Interventions - Exercise/Activities/Manual Therapy Exercises/Activities: Na Manual Therapy: NA HOME EXERCISE PROGRAM: Scapular retraction, yellow therapy putty for certified medical technician, gentle pain free cervical ROM in all directions.Do not force cervical extension. - Objective Findings Observations,measurements,etc.: Shoulder strength 4/5, biceps/triceps 4+/5. Gentle active cervical rotation to left and right ~ 55 degrees. - Charges Timed Code Treatment Minutes: Na Total Treatment Time: NA Procedures billed for this date of service:: NA Assessment Assessment: Patient with reports of improved ability with daily activities and use of UE's. She reports continued tingling in the hands, but understands this may take some time to resolve. She feels confident that she can continue her HEP on her own.She will be continuing to use the bone stimulator as well. Short Term Goals Goal #1: Bilateral hand pain decreased to <5/10 Goal to be met by: 04/03/18 Progress towards Goal:: Partially Met Goal #2: Muscle tone along right upper traps decreased to minimal. Goal to be met by: 04/03/18 Progress towards Goal:: Met Goal #3: UE AROM WFL's to perform ADL's with minimal difficulty. Goal to be met by: 04/03/18 Progress towards Goal:: Partially Met Comments:: Able to perform light ADL's. Skilled Nursing Goals Goal #1: Pt knows HEP and to continue ex's to maintain functional level at D/C. Goal to be met by: 04/29/18 Progress towards goal: Met Goal #2: Score on UE functional index improved to 19% impairment or less. Goal to be met by: 04/29/18 (16.25% deficit) Progress towards goal: Met Goal #3: Pt able to perform all selfcare and ADL's without difficulty or pain. Goal to be met by: 04/29/18 Progress towards goal: Partially Met Comments: Able to perform light ADL's. Goal #4: Pt will demonstrate good postural awareness. Goal to be met by: 04/29/18 Progress towards goal: Met Plan Reason for Discharge:: No Further Skilled Therapy Indicated
== END 2018-04-24 23:59 ==
PROVIDERS: ATTEND Nurse Practitioner Family
DX: M47.12 Other spondylosis with myelopathy, cervical region (principal); M54.2 Cervicalgia; G89.29 Other chronic pain; R20.0 Anesthesia of skin; R20.2 Paresthesia of skin; M54.9 Dorsalgia, unspecified; M47.9 Spondylosis, unspecified; R52 Pain, unspecified; R29.898 Other symptoms and signs involving the musculoskeletal system; M62.81 Muscle weakness (generalized); Z98.890 Other specified postprocedural states

== ENCOUNTER 2018-06-23 11:00 | Outpatient (RCR) ==
--- NOTE | 2018-06-23 09:00 | RS.OPPTEV2 ---
Date of Note: 06/20/18 Visit #: 1 Date of Evaluation: 06/20/18 Payer Source: MEDICARE Surgery Performed?: Yes Procedure Performed: Right TKA Date of Procedure: 06/11/18 Treatment Diagnosis: Right knee effusion, right knee stiffness, knee pain, s/p Right TKA History of Condition/Mechanism of Injury:: Patient reports progressive OA causing limited function and pain led her to have a TKA. Prior Level of Function.....Patient was independent with: ADL's, Self Care, Caregiving, Ambulation/Mobility, Community Integration/Access Functional Limitations: Sleep, Self Care, ADL's, Reaching, Pushing, Pulling, Lifting, Carrying, Sitting, Community Access/Integration Current Subjective/complaints:: Mrs. Gutierrez reports she goes back to Dr. Goldstein for a follow up on Saturday06/23/18. States the pain medication she has, [place], is not helping her pain very much. Reports she is icing the knee joint. She was in the hospital three nights after her surgery. She has not had Home Health. She reports no prior surgeries to the right knee. States the swelling has gone down in her right LE. Also states the redness along the incision has improved. States they have been changing her dressing and she has had no drainage. States she has a HEP that she was given from the hospital. Reports difficulty walking short distances, difficulty getting in/out of vehicle. She is unable to perform cooking or housework. Her is helping her with selfcare and ADL's. She has a few steps to get into her mobile home and needs her to help her. Treatment Side (optional): Right Medical History Medical History: Hypertension, Arthritis Surgical History: Hip Replacement Surgical History Comments:: carpal tunnel repair B hands, achilles tendon repair LLE, THR LLE 3 years ago Smoking Status: Former smoker Hx Home Medications: [place], Coumadin. Patient's Goals: Her goal is to return to full level of independence. Pain Assessment - Pain Description Pain Location: right knee Pain Description: Sharp, Throbbing, Aching Current Pain Intensity: 8/10 Worst Pain Intensity: 10/10 Functional Outcome Measure LE Functional Scale: 17 (17/80=75.75% impairment) - G Codes & Severity Modifier G Codes & Modifier: Mob current CL. Mob goal CJ Source of G Code score: LE functional scale Observation - Observation Inspection: Presents to department using rolling walker. Right knee with light dressing over incision. Upon removal of dressing, the incision has stitches intact and no drainage. The lower half of the incision has redness along it. and Mrs. Gutierrez state that it is much less red than it was a few days ago. Girth Measurement Lower: Superior patella 53.75 cm. inferior patella 43 cm. Malleoli 30.5 cm Gait - Gait Pattern Gait Comments: Patient ambulates with a rolling walker with a slow guarded gait. Demonstrates minimal heelstrike on the right LE, decreased stance on the right, and decreased right hip and knee flexion during swing phase. - Left Knee ROM Left Knee Extension: -2 from full extension Left Knee Flexion: 112 (degrees AROM) - Right Knee ROM Right Knee Extension: -9 degrees from full extension Right Knee Flexion: 60 (degrees AROM) Knee ROM Limitations: Soft Tissue Tightness, Pain - Left Knee Strength Left Knee Extension: 4+ Good + Left Knee Flexion: 4+ Good + - Right Knee Strength Right Knee Extension: 4- Good- Right Knee Flexion: 4 Good Sensation - Sensation Comments: Reports sensation intact to light touch. - Treatment Modality: Electrical Stim Unattended Parameters/Method Applied: 15 mins of IFC up to 9 peak volts with 4 large pads over right knee - Heat/Cryotherapy Treatment: Cryotherapy (with Estim to right knee following eval and exercises) Interventions - Exercise/Activities/Manual Therapy Exercises/Activities: Assisted patient with flexion/extension of the right knee. Stretched right heelcord. Patient performed QS, SLR, SAQ's. Patient given instruction for quad sets and standing HS curls to add to HEP. Discussed elevating the leg. Patient with understanding from the hospital that she shouldn't put anything under the knee. Explained that pillow(s) under the entire lower leg, from the knee to the foot is fine to elevate the leg, and using a bolster or pillow under the knee for the duration of SAQ's is fine. Total minutes of Exercise: 18 mins Manual Therapy: NA HOME EXERCISE PROGRAM: TKA protocol from acute hospital stay, also given Quad sets and standing HS curls. - Charges Timed Code Treatment Minutes: 33 mins Total Treatment Time: 80 mins Procedures billed for this date of service:: EVAL medium, EX, CP, EStim EVALUATION COMPLEXITY LEVEL EVALUATION COMPLEXITY LEVEL: HISTORY: Medium (Recent neck surgery with residual symptoms in UE's, prior left CAIT), EXAM OF BODY SYSTEMS: Medium, CLINICAL PRESENTATION: Medium (Lengthy evaluation, total time with patient 80 mins), CLINICAL DECISION MAKING: Low Assessment Assessment: Patient presents to therapy nine days s/p right TKA. She exhibits difficulty with ambulation, limited right knee AROM and strength. She reports relying on her for selfcare and ADL's due to current limitations. She exhibits swelling of the right knee and reports current medication of [place] is not effective in decreasing her pain. She demonstrates potential to benefit from modalities to reduce pain and swelling and progressed therapeutic exercises to regain functional right knee AROM. Patient Education: Education of diagnosis, Body/Joint mechanics, Home Exercise Program, Home Safety, Activity Modification, Education of Plan of Care Rehab Potential: Good Short Term Goals Goal #1: Pt independent and compliant with HEP. Goal to be met by: 07/03/18 Goal #2: Right quad strength 4/5. Goal to be met by: 07/03/18 Goal #3: Right knee active extension -2 degrees. Goal to be met by: 07/07/18 Goal #4: Right knee active flexion to 95 degrees. Goal to be met by: 07/07/18 [facility] Goals Goal #1: Pt knows HEP and to continue ex's to maintain functional level at D/C. Goal to be met by: 08/07/18 Goal #2: Score on LE scale improved to <39% disability. Goal to be met by: 08/07/18 Goal #3: Pt able to perform all selfcare and ADL's independently. Goal to be met by: 08/07/18 Goal #4: Pt to amb. without assistive device, community distances w/ min. gt dev. Goal to be met by: 08/07/18 Plan - Treatment to be Provided Procedures: Therapeutic Exercises, Therapeutic Activity, Gait Training, Neuromuscular Rehab, Manual Therapy, Patient Education Modalities: Electrical Stimulation, Class IV Laser, Cryotherapy, Hot Packs - Treatment Plan Frequency: 3 X week Duration: 4 weeks ORDER # VISITS AND/OR THROUGH DATE: 08/07/18 - Treatment Code (1) Knee pain Code(s): M25.569 - PAIN IN UNSPECIFIED KNEE Qualifiers: Chronicity: acute Laterality: right Qualified Code(s): M25.561 - Pain in right knee (2) Knee effusion Qualifiers: Laterality: right Qualified Code(s): M25.461 - Effusion, right knee (3) Knee stiffness Qualifiers: Laterality: right Qualified Code(s): M25.661 - Stiffness of right knee, not elsewhere classified (4) Unsteadiness on feet Code(s): R26.81 - UNSTEADINESS ON FEET Comments: R26.81 (5) Aftercare following joint replacement surgery Code(s): Z47.1 - AFTERCARE FOLLOWING JOINT REPLACEMENT SURGERY Qualifiers: Joint replacement surgery site: knee Laterality: right Qualified Code(s) : Z47.1 - Aftercare following joint replacement surgery; Z96.651 - Presence of right artificial knee joint
--- NOTE | 2018-06-23 14:37 | RS.OPPTDN ---
Subjective Date of Note: 06/23/18 Visit #: 2 Date of Evaluation: 06/20/18 Payer Source: MEDICARE Treatment Diagnosis: Right knee effusion, right knee stiffness, knee pain, s/p Right TKA Current Subjective/complaints:: Patient says she has an appt today with Dr. Goldstein this afternoon and eager to have her stitches removed. She says she is going to talk to her MD about getting different pain medication because current meds are not effective. She says she is working on HEP and icing. Reports swelling is going down and mobility is improving slowly. Pain Assessment - Pain Description Pain Location: Does not rate, says pain is better. Pain extends to the foot along with swelling. - Treatment Modality: Electrical Stim Unattended Parameters/Method Applied: hivolt 4 large pads crossed @ 175 pk volts x 20 mins after therex to R knee Patient Position: Supine - Heat/Cryotherapy Treatment: Cryotherapy Interventions - Exercise/Activities/Manual Therapy Exercises/Activities: Assisted patient with flexion/extension of the right knee. Stretched right heelcord and hamstrings. Patient performed QS, SLR, SAQ' s, AP, heel slides with slight overpressures intermittently, hip abd/add with knee extended, ham sets, all 2x10 with exception of SLR (3x5). Contract/Relax method to gain ROM, ankle over bolster for prolonged extension stretching, sitting EOB: LAQ multiple reps with overpressures. Contract/Relax at EOB. Education of diagnosis, anatomy, body mechanics, stair training, and HeP. Encouraged cryotherapy for home. Total minutes of Exercise: 34 Manual Therapy: NA HOME EXERCISE PROGRAM: TKA protocol from acute hospital stay, also given Quad sets and standing HS curls. - Charges Timed Code Treatment Minutes: 34 Total Treatment Time: 54 Procedures billed for this date of service:: cp, estim (un), ex2 Assessment: -4 (supine) to 86 degrees (sitting), 90 (supine with hip flexed at 90). Patient appears to demetra increased therex today resulting in improved swelling and mobility. Patient Education: Education of diagnosis, Body/Joint mechanics, Home Exercise Program, Home Safety, Education of Plan of Care Patient demonstrates compliance with HEP?: Yes Short Term Goals Goal #1: Pt independent and compliant with HEP. Goal to be met by: 07/03/18 Progress towards Goal:: Progressing Goal #2: Right quad strength 4/5. Goal to be met by: 07/03/18 Progress towards Goal:: Progressing Goal #3: Right knee active extension -2 degrees. Goal to be met by: 07/07/18 Progress towards Goal:: Progressing Goal #4: Right knee active flexion to 95 degrees. Goal to be met by: 07/07/18 Wire Spinner Goals Goal #1: Pt knows HEP and to continue ex's to maintain functional level at D/C. Goal to be met by: 08/07/18 Goal #2: Score on LE scale improved to <39% disability. Goal to be met by: 08/07/18 Goal #3: Pt able to perform all selfcare and ADL's independently. Goal to be met by: 08/07/18 Goal #4: Pt to amb. without assistive device, community distances w/ min. gt dev. Goal to be met by: 08/07/18 Plan PLAN OF CARE EXPIRES ON:: 08/07/18 ORDER # VISITS AND/OR THROUGH DATE: 08/07/18 PLAN: Patient to continue TIW. She is to follow up with Dr. Goldstein today.
== END 2018-06-24 23:59 | disposition short-term general hospital (02) ==
PROVIDERS: ATTEND Orthopaedic Surgery
DX: Z47.1 Aftercare following joint replacement surgery (principal); Z96.651 Presence of right artificial knee joint; M25.561 Pain in right knee; M25.461 Effusion, right knee; M25.661 Stiffness of right knee, not elsewhere classified; R26.81 Unsteadiness on feet

== ENCOUNTER 2018-07-11 10:00 | Outpatient (RCR) ==
--- NOTE | 2018-06-25 11:39 | RS.OPPTDN ---
Subjective Date of Note: 06/25/18 Visit #: 3 Date of Evaluation: 06/20/18 Payer Source: MEDICARE Treatment Diagnosis: Right knee effusion, right knee stiffness, knee pain, s/p Right TKA Current Subjective/complaints:: Reports doing her HEP often.She is steady with use of R/W today. *Precautions: Cervical spine fusion 02/04/18 Pain Assessment - Pain Description Current Pain Intensity: 6-7 entering clinic Other Comments regarding Pain:: minimal at rest - Treatment Modality: Electrical Stim Unattended Parameters/Method Applied: 20 mins. high volt to R knee,channel 1 to quads @190 pv,channel 2 to anterior tib. area 330 pv. Patient Position: Supine - Heat/Cryotherapy Treatment: Cryotherapy (concurrent with e-stim) Interventions - Exercise/Activities/Manual Therapy Exercises/Activities: Supine TKA protocol ,multiple reps.of ankle pumps,QS,SAQ, heelslides,passive extension on bolster,hamstring stretches.SLR's done 3-5 reps at a time due to fatigue.Passive extension is full ,active extension is -5 to - 7 with SAQ done.Active flexion 85 ,90 with stretch . Total minutes of Exercise: 35 Manual Therapy: NA Total minutes of Manual Therapy: 0 HOME EXERCISE PROGRAM: TKA protocol from acute hospital stay, also given Quad sets and standing HS curls. - Charges Timed Code Treatment Minutes: 55 Total Treatment Time: 60 Procedures billed for this date of service:: cp,e-stim ,ex 2 Assessment: Patient tolerates exercises well,has moderate edema and warmth present in the R knee.She has soft end feel for flexion ,but pain at end ROM for quads stretch today.No sharp pain reported with passive extension.She is 2 weeks post-op today.She is attentive and motivated to improve. Patient Education: Education of diagnosis, Body/Joint mechanics, Home Exercise Program, Home Safety, Activity Modification, Education of Plan of Care Patient demonstrates compliance with HEP?: Yes Short Term Goals Goal #1: Pt independent and compliant with HEP. Goal to be met by: 07/03/18 Progress towards Goal:: Progressing Goal #2: Right quad strength 4/5. Goal to be met by: 07/03/18 Progress towards Goal:: Progressing Goal #3: Right knee active extension -2 degrees. Goal to be met by: 07/07/18 Progress towards Goal:: Progressing Goal #4: Right knee active flexion to 95 degrees. Goal to be met by: 07/07/18 Guncotton Packer Goals Goal #1: Pt knows HEP and to continue ex's to maintain functional level at D/C. Goal to be met by: 08/07/18 Progress towards goal: Progressing Goal #2: Score on LE scale improved to <39% disability. Goal to be met by: 08/07/18 Goal #3: Pt able to perform all selfcare and ADL's independently. Goal to be met by: 08/07/18 Progress towards goal: Progressing Goal #4: Pt to amb. without assistive device, community distances w/ min. gt dev. Goal to be met by: 08/07/18 Plan PLAN OF CARE EXPIRES ON:: 08/07/18 ORDER # VISITS AND/OR THROUGH DATE: 08/07/18 PLAN: Continue PT to reduce R knee pain ,increase ROM for efficient and safe ADL 's.
--- NOTE | 2018-06-27 11:36 | RS.OPPTDN ---
Subjective Date of Note: 06/27/18 Visit #: 4 Date of Evaluation: 06/20/18 Payer Source: MEDICARE Treatment Diagnosis: Right knee effusion, right knee stiffness, knee pain, s/p Right TKA Current Subjective/complaints:: Patient progressing ,reports doing her HEP regularly. *Precautions: Cervical spine fusion 02/04/18 Pain Assessment - Pain Description Pain Location: R knee Pain Description: Tightness, Dull, Aching Current Pain Intensity: 5 - Treatment Modality: Electrical Stim Unattended Parameters/Method Applied: 20 mis. high volt to R knee,channel,4 electrodes , patient in supine. Patient Position: Supine - Heat/Cryotherapy Treatment: Cryotherapy (concurrent with e-stim) Interventions - Exercise/Activities/Manual Therapy Exercises/Activities: 30 mins. total of AP,QS,SAQ,SLR ,heelslides,seated self - stretch to quads ,and LAQ's,3/10 each.ROM is 92 flexion with self-stretch using the other LE to push,active extension is -7 to -10 with LAQ.Passive extension is WNL. Total minutes of Exercise: 30 Manual Therapy: NA Total minutes of Manual Therapy: 0 HOME EXERCISE PROGRAM: TKA protocol from acute hospital stay, also given Quad sets and standing HS curls. - Charges Timed Code Treatment Minutes: 50 Total Treatment Time: 50 Procedures billed for this date of service:: cp,e-stim,ex 2 Assessment: Progressing well ,increased R knee motion ,less warmth ,less edema present ,which varies ,dependent upon amount of daily activities.She has steady transfers and gait ,compliant to HEP. Patient Education: Education of diagnosis, Body/Joint mechanics, Home Exercise Program, Home Safety, Activity Modification, Education of Plan of Care Patient demonstrates compliance with HEP?: Yes Short Term Goals Goal #1: Pt independent and compliant with HEP. Goal to be met by: 07/03/18 Progress towards Goal:: Progressing Goal #2: Right quad strength 4/5. Goal to be met by: 07/03/18 Progress towards Goal:: Progressing Goal #3: Right knee active extension -2 degrees. Goal to be met by: 07/07/18 Progress towards Goal:: Progressing Goal #4: Right knee active flexion to 95 degrees. Goal to be met by: 07/07/18 Progress towards Goal:: Progressing Encoding Machine Operator Goals Goal #1: Pt knows HEP and to continue ex's to maintain functional level at D/C. Goal to be met by: 08/07/18 Progress towards goal: Progressing Goal #2: Score on LE scale improved to <39% disability. Goal to be met by: 08/07/18 Goal #3: Pt able to perform all selfcare and ADL's independently. Goal to be met by: 08/07/18 Progress towards goal: Progressing Goal #4: Pt to amb. without assistive device, community distances w/ min. gt dev. Goal to be met by: 08/07/18 Plan PLAN OF CARE EXPIRES ON:: 08/07/18 ORDER # VISITS AND/OR THROUGH DATE: 08/07/18 PLAN: Cont.PT to increase R knee motion and increase strength.
--- NOTE | 2018-06-30 11:29 | RS.OPPTDN ---
Subjective Date of Note: 06/30/18 Visit #: 5 Date of Evaluation: 06/20/18 Payer Source: MEDICARE Treatment Diagnosis: Right knee effusion, right knee stiffness, knee pain, s/p Right TKA Current Subjective/complaints:: Reports the evening after of last Saturday 's treatment,she had elevated pain and aching from the exercise,but felt much better over the weekend. *Precautions: Cervical spine fusion 02/04/18 Pain Assessment - Pain Description Pain Location: R knee Pain Description: Tightness, Dull, Aching Current Pain Intensity: 10 - Treatment Modality: Electrical Stim Unattended Parameters/Method Applied: 20 mins. high volt , 4 pads to R kneee,channel 1 @ 90 pv to quads,225 to anterior tib . area. Patient Position: Supine - Heat/Cryotherapy Treatment: Cryotherapy (concurrent with e-stim) Interventions - Exercise/Activities/Manual Therapy Exercises/Activities: AP,QS,SAQ,SLR ,heelslides,,and LAQ's,02/01 each.ROM is 90 with heelslide today active extension is -7 to -10 with LAQ.Passive extension is WNL. Total minutes of Exercise: 25 Manual Therapy: NA Total minutes of Manual Therapy: 0 HOME EXERCISE PROGRAM: TKA protocol from acute hospital stay, also given Quad sets and standing HS curls. - Charges Timed Code Treatment Minutes: 45 Total Treatment Time: 45 Procedures billed for this date of service:: cp,e-stim,ex 2 Assessment: No significant increase in R knee flexion today ,but has moderate edema and warmth, still has soft end feel present.She has full knee extension passively and with quad set exercise.She has steady gait with rolling walker.She is compliant to HEP. Patient Education: Education of diagnosis, Body/Joint mechanics, Home Exercise Program, Home Safety, Activity Modification, Education of Plan of Care Patient demonstrates compliance with HEP?: Yes Short Term Goals Goal #1: Pt independent and compliant with HEP. Goal to be met by: 07/03/18 Progress towards Goal:: Progressing Goal #2: Right quad strength 4/5. Goal to be met by: 07/03/18 Progress towards Goal:: Progressing Goal #3: Right knee active extension -2 degrees. Goal to be met by: 07/07/18 Progress towards Goal:: Progressing Goal #4: Right knee active flexion to 95 degrees. Goal to be met by: 07/07/18 (90-92) Progress towards Goal:: No Change Tape Maker Goals Goal #1: Pt knows HEP and to continue ex's to maintain functional level at D/C. Goal to be met by: 08/07/18 Progress towards goal: Progressing Goal #2: Score on LE scale improved to <39% disability. Goal to be met by: 08/07/18 Goal #3: Pt able to perform all selfcare and ADL's independently. Goal to be met by: 08/07/18 Progress towards goal: Progressing Goal #4: Pt to amb. without assistive device, community distances w/ min. gt dev. Goal to be met by: 08/07/18 Plan PLAN OF CARE EXPIRES ON:: 08/07/18 ORDER # VISITS AND/OR THROUGH DATE: 08/07/18 PLAN: Continue PT to strengthen and increase the motion of R knee,eliminate swelling and pain .
--- NOTE | 2018-07-02 11:18 | RS.OPPTDN ---
Subjective Date of Note: 07/02/18 Visit #: 6 Date of Evaluation: 06/20/18 Payer Source: MEDICARE Treatment Diagnosis: Right knee effusion, right knee stiffness, knee pain, s/p Right TKA Current Subjective/complaints:: Reports doing her HEP frequently.No current knee pain when at rest. *Precautions: Cervical spine fusion 02/04/18 Pain Assessment - Pain Description Pain Location: R knee Pain Description: Tightness, Dull, Aching Current Pain Intensity: 0 at rest Worst Pain Intensity: 4 with walking today - Treatment Modality: Electrical Stim Unattended Parameters/Method Applied: 20 mins. high volt to R knee ,channel 1 to quads @ 205pv,channel 2 to ant. tib. @ 275pv. Patient Position: Supine - Heat/Cryotherapy Treatment: Cryotherapy (concurrent with e-stim.) Interventions - Exercise/Activities/Manual Therapy Exercises/Activities: AP,QS,SAQ,SLR ,heelslides,,and LAQ's,3/10 each.ROM is 90 with heelslide today active extension is -7 to -10 with LAQ.Passive extension is WNL.Active R knee flexion is 92,increased to 97 with self-stretch (foot planted on floor). Total minutes of Exercise: 25 Manual Therapy: NA Total minutes of Manual Therapy: 0 HOME EXERCISE PROGRAM: TKA protocol from acute hospital stay, also given Quad sets and standing HS curls. - Charges Timed Code Treatment Minutes: 45 Total Treatment Time: 45 Procedures billed for this date of service:: cp,e-stim,ex 2 Assessment: R knee has softer end feel today,less warmth and less edema.He knee flexion is better actively.Her quad strength is also improving.She is very compliant to HEP and motivbated to improve. Patient Education: Education of diagnosis, Body/Joint mechanics, Home Exercise Program, Home Safety, Activity Modification, Education of Plan of Care Patient demonstrates compliance with HEP?: Yes Short Term Goals Goal #1: Pt independent and compliant with HEP. Goal to be met by: 07/03/18 Progress towards Goal:: Met Goal #2: Right quad strength 4/5. Goal to be met by: 07/03/18 Progress towards Goal:: Progressing Goal #3: Right knee active extension -2 degrees. Goal to be met by: 07/07/18 Progress towards Goal:: Progressing Goal #4: Right knee active flexion to 95 degrees. Goal to be met by: 07/07/18 Progress towards Goal:: Progressing Jail Goals Goal #1: Pt knows HEP and to continue ex's to maintain functional level at D/C. Goal to be met by: 08/07/18 Progress towards goal: Partially Met Goal #2: Score on LE scale improved to <39% disability. Goal to be met by: 08/07/18 Goal #3: Pt able to perform all selfcare and ADL's independently. Goal to be met by: 08/07/18 Progress towards goal: Progressing Goal #4: Pt to amb. without assistive device, community distances w/ min. gt dev. Goal to be met by: 08/07/18 Plan PLAN OF CARE EXPIRES ON:: 08/07/18 ORDER # VISITS AND/OR THROUGH DATE: 08/07/18 PLAN: Continue PT to increase strength and motion ,eliminate pain with gait.
--- NOTE | 2018-07-04 11:54 | RS.OPPTDN ---
Subjective Date of Note: 07/04/18 Visit #: 7 Date of Evaluation: 06/20/18 Payer Source: MEDICARE Treatment Diagnosis: Right knee effusion, right knee stiffness, knee pain, s/p Right TKA Current Subjective/complaints:: No c/o,had follow up appt. with saqib Means report. *Precautions: Cervical spine fusion 02/04/18 Pain Assessment - Pain Description Pain Location: R knee Pain Description: Tightness, Dull, Aching Pain Description: "very minimal " - Treatment Modality: Electrical Stim Unattended Parameters/Method Applied: 20 mins. high volt to R knee ,4 electrodes ,channel 1 @ 180 pv,channel 2 @ 175 pv. Interventions - Exercise/Activities/Manual Therapy Exercises/Activities: 35 mins. total ,beginning with ankle pumps,LAQ's, progressed to leg press,both legs @ 3/15 reps.,30# and 45 # and 60 #,R leg only for 10 @ 15and 30 #resistance.Ended session with seated stretch to quads .Flexion is 100 degrees ,active extension doing a LAQ is -4 today. Total minutes of Exercise: 35 Manual Therapy: NA Total minutes of Manual Therapy: 0 HOME EXERCISE PROGRAM: TKA protocol from acute hospital stay, also given Quad sets and standing HS curls. - Charges Timed Code Treatment Minutes: 55 Total Treatment Time: 55 Procedures billed for this date of service:: cp,e-stim,ex 2 Assessment: Continues to progress well in all areas,less edema ,less warmth in R knee .Increased flexion with soft end feel today.She is motivated to improve and return to higher LOF. Patient Education: Education of diagnosis, Body/Joint mechanics, Home Exercise Program, Home Safety, Activity Modification, Education of Plan of Care Patient demonstrates compliance with HEP?: Yes Short Term Goals Goal #1: Pt independent and compliant with HEP. Goal to be met by: 07/03/18 Progress towards Goal:: Met Goal #2: Right quad strength 4/5. Goal to be met by: 07/03/18 Progress towards Goal:: Progressing Goal #3: Right knee active extension -2 degrees. Goal to be met by: 07/07/18 Progress towards Goal:: Progressing Goal #4: Right knee active flexion to 95 degrees. Goal to be met by: 07/07/18 (100 ,but with self-stretch) Progress towards Goal:: Partially Met [facility] Goals Goal #1: Pt knows HEP and to continue ex's to maintain functional level at D/C. Goal to be met by: 08/07/18 Progress towards goal: Partially Met Goal #2: Score on LE scale improved to <39% disability. Goal to be met by: 08/07/18 Goal #3: Pt able to perform all selfcare and ADL's independently. Goal to be met by: 08/07/18 Progress towards goal: Progressing Goal #4: Pt to amb. without assistive device, community distances w/ min. gt dev. Goal to be met by: 08/07/18 Plan PLAN OF CARE EXPIRES ON:: 08/07/18 ORDER # VISITS AND/OR THROUGH DATE: 08/07/18 PLAN: Continue PT to increase R knee motion and strength for safe transfers and normal gait .
--- NOTE | 2018-07-07 11:14 | RS.OPPTDN ---
Subjective Date of Note: 07/07/18 Visit #: 8 Date of Evaluation: 06/20/18 Payer Source: MEDICARE Treatment Diagnosis: Right knee effusion, right knee stiffness, knee pain, s/p Right TKA Current Subjective/complaints:: Pleased with her progress,reports using the walker musch less at home. *Precautions: Cervical spine fusion 02/04/18 Pain Assessment - Pain Description Pain Location: R knee. Pain Description: Tightness, Dull, Aching Current Pain Intensity: "minimal " - Heat/Cryotherapy Treatment: Cryotherapy (20 mins. prior to exercises) Interventions - Exercise/Activities/Manual Therapy Exercises/Activities: 40 mins. total ,beginning with ankle pumps,LAQ's with 4#, blue theraband for seated hams. curls , progressed to leg press,both legs @ 3/ 15 reps., 60 #,R leg only for 3/15 @ 30 #resistance.One nicole of 5 reps . @ 45 # Ended session with seated stretch to quads .Flexion is 105 degrees with assisted stretch ,active extension doing a LAQ is WNL today. Total minutes of Exercise: 40 Manual Therapy: NA Total minutes of Manual Therapy: 0 HOME EXERCISE PROGRAM: TKA protocol from acute hospital stay, also given Quad sets and standing HS curls. - Charges Timed Code Treatment Minutes: 40 Total Treatment Time: 60 Procedures billed for this date of service:: cp,ex 3 Assessment: Patient continues to progress well,less antalgic gait with out walker for short distances.He r R knee is less warm ,less edema present .She continues to have soft end feel present for flexion. Patient Education: Education of diagnosis, Body/Joint mechanics, Home Exercise Program, Home Safety, Activity Modification, Education of Plan of Care Patient demonstrates compliance with HEP?: Yes Short Term Goals Goal #1: Pt independent and compliant with HEP. Goal to be met by: 07/03/18 Progress towards Goal:: Met Goal #2: Right quad strength 4/5. Goal to be met by: 07/03/18 Progress towards Goal:: Progressing Goal #3: Right knee active extension -2 degrees. Goal to be met by: 07/07/18 Progress towards Goal:: Progressing Goal #4: Right knee active flexion to 95 degrees. Goal to be met by: 07/07/18 (100 ,but with self-stretch) Progress towards Goal:: Partially Met Conveyor Belt Repairer Goals Goal #1: Pt knows HEP and to continue ex's to maintain functional level at D/C. Goal to be met by: 08/07/18 Progress towards goal: Partially Met Goal #2: Score on LE scale improved to <39% disability. Goal to be met by: 08/07/18 Goal #3: Pt able to perform all selfcare and ADL's independently. Goal to be met by: 08/07/18 Progress towards goal: Progressing Goal #4: Pt to amb. without assistive device, community distances w/ min. gt dev. Goal to be met by: 08/07/18 Plan PLAN OF CARE EXPIRES ON:: 08/07/18 ORDER # VISITS AND/OR THROUGH DATE: 08/07/18 PLAN: Continue PT to increase R knee ROM and strength.
--- NOTE | 2018-07-09 11:17 | RS.OPPTDN ---
Subjective Date of Note: 07/09/18 Visit #: 9 Date of Evaluation: 06/20/18 Payer Source: MEDICARE Treatment Diagnosis: Right knee effusion, right knee stiffness, knee pain, s/p Right TKA Current Subjective/complaints:: Reports increased soreness today ,but pleased with her progress. *Precautions: Cervical spine fusion 02/04/18 Pain Assessment - Pain Description Pain Location: R knee Pain Description: Dull, Aching Current Pain Intensity: 2 Interventions - Exercise/Activities/Manual Therapy Exercises/Activities: 55 mins. total ,beginning with gait in gym with supervision using cane ,then seated ankle pumps,LAQ's with 4#,blue theraband for seated hams. curls , progressed to leg press,both legs ,60 # @ 02/06 reps. Ended session with seated stretch to quads .Flexion is 100 degrees actively today. Total minutes of Exercise: 55 Manual Therapy: NA Total minutes of Manual Therapy: 0 HOME EXERCISE PROGRAM: TKA protocol from acute hospital stay, also given Quad sets and standing HS curls. - Charges Timed Code Treatment Minutes: 55 Total Treatment Time: 60 Procedures billed for this date of service:: ex 3,ther. act. 1 Assessment: Patient uses good technique with cane ,recommended to use walker for longer distances outside of home at this time for safety on uneven terrain.Her R LE strength and knee motion is improving ,continues to have soft end feel with knee flexion. Patient Education: Education of diagnosis, Body/Joint mechanics, Home Exercise Program, Home Safety, Activity Modification, Education of Plan of Care Patient demonstrates compliance with HEP?: Yes Short Term Goals Goal #1: Pt independent and compliant with HEP. Goal to be met by: 07/03/18 Progress towards Goal:: Met Goal #2: Right quad strength 4/5. Goal to be met by: 07/03/18 Progress towards Goal:: Partially Met Goal #3: Right knee active extension -2 degrees. Goal to be met by: 07/07/18 Progress towards Goal:: Progressing Goal #4: Right knee active flexion to 95 degrees. Goal to be met by: 07/07/18 (100 ,actively today) Progress towards Goal:: Met Hosiery Repairer Goals Goal #1: Pt knows HEP and to continue ex's to maintain functional level at D/C. Goal to be met by: 08/07/18 Progress towards goal: Met Goal #2: Score on LE scale improved to <39% disability. Goal to be met by: 08/07/18 Goal #3: Pt able to perform all selfcare and ADL's independently. Goal to be met by: 08/07/18 Progress towards goal: Partially Met Goal #4: Pt to amb. without assistive device, community distances w/ min. gt dev. Goal to be met by: 08/07/18 Progress towards goal: Progressing Plan PLAN OF CARE EXPIRES ON:: 08/07/18 ORDER # VISITS AND/OR THROUGH DATE: 08/07/18 PLAN: Continue PT to return to PLOF ,safe gait with least restrictive device.
--- NOTE | 2018-07-11 12:57 | RS.OPPTDN ---
Subjective Date of Note: 07/11/18 Visit #: 10 Date of Evaluation: 06/20/18 Payer Source: MEDICARE Treatment Diagnosis: Right knee effusion, right knee stiffness, knee pain, s/p Right TKA Current Subjective/complaints:: Patient enters clinic today with safe use of straight cane.She is aware of D/C plan today due to good progress. *Precautions: Cervical spine fusion 02/04/18 Pain Assessment - Pain Description Pain Location: R knee Pain Description: Dull, Aching Current Pain Intensity: 0 at rest Interventions - Exercise/Activities/Manual Therapy Exercises/Activities: 40 mins. total ,3/15 reps on leg press @ 60 #,75#.Seated LAQ's with 5# resistance,3/10 reps.Active R knee flexion is 100 ,102 with self - stretch.. Total minutes of Exercise: 40 Manual Therapy: NA HOME EXERCISE PROGRAM: TKA protocol from acute hospital stay, also given Quad sets and standing HS curls. - Charges Timed Code Treatment Minutes: 40 Total Treatment Time: 45 Procedures billed for this date of service:: ex 3 Assessment: Patient agrees with D/C plan today after discussing her progress and doing the LE functional scale.She has met or partially met all rheab goals.She has safe transfers and gait,R knee ROM is functional and likely to improve more as the end feel for flexion is soft.She has less edema and warmth in the R knee. Patient Education: Home Exercise Program, Home Safety, Education of Plan of Care Patient demonstrates compliance with HEP?: Yes Short Term Goals Goal #1: Pt independent and compliant with HEP. Goal to be met by: 07/03/18 Progress towards Goal:: Met Goal #2: Right quad strength 4/5. Goal to be met by: 07/03/18 Progress towards Goal:: Met Goal #3: Right knee active extension -2 degrees. Goal to be met by: 07/07/18 Progress towards Goal:: Met Goal #4: Right knee active flexion to 95 degrees. Goal to be met by: 07/07/18 (100 ,actively today) Progress towards Goal:: Met F[facility] Goals Goal #1: Pt knows HEP and to continue ex's to maintain functional level at D/C. Goal to be met by: 08/07/18 Progress towards goal: Met Goal #2: Score on LE scale improved to <39% disability. Goal to be met by: 08/07/18 Progress towards goal: Progressing Goal #3: Pt able to perform all selfcare and ADL's independently. Goal to be met by: 08/07/18 Progress towards goal: Met Goal #4: Pt to amb. without assistive device, community distances w/ min. gt dev. Goal to be met by: 08/07/18 Progress towards goal: Partially Met Plan PLAN OF CARE EXPIRES ON:: 08/07/18 ORDER # VISITS AND/OR THROUGH DATE: 08/07/18 PLAN: Discuss patient status with supervising PT ,plan to D/C.
--- NOTE | 2018-07-17 16:37 | RS.OPPTDC ---
Date of Discharge: 07/11/18 Date of Evaluation: 06/20/18 Number of Visits: 10 Treatment Diagnosis: Right knee effusion, right knee stiffness, knee pain, s/p Right TKA Current Complaints/Gains: Mrs. Gutierrez is pleased with her progress. She has presented to be compliant with her HEP. She and her demonstrate understanding that she needs to continue her exercises. Functional Outcome Measure LE Functional Scale: 34 (34/80=43%) - G Codes & Severity Modifier G Codes & Modifier: Mobility goal CJ. Mobility D/C CK Source of G Code score: LE functional scale Interventions - Exercise/Activities/Manual Therapy Exercises/Activities: NA Manual Therapy: NA HOME EXERCISE PROGRAM: TKA protocol from acute hospital stay, also given Quad sets and standing HS curls. - Objective Findings Observations,measurements,etc.: Paitent demonstrates 4+/5 quad strength. AROM is functional extension to 100-102 degrees flexion. Patient able to perform LAQ 's with 5# weight. Demonstrates safe gait with straight cane or rolling walker. - Charges Timed Code Treatment Minutes: NA Total Treatment Time: NA Procedures billed for this date of service:: NA Assessment Assessment: Patient with good progress with right knee ROM and strength. She is able to perform HEP independently and understands the need to continue the exercises. Short Term Goals Goal #1: Pt independent and compliant with HEP. Goal to be met by: 07/03/18 Progress towards Goal:: Met Goal #2: Right quad strength 4/5. Goal to be met by: 07/03/18 Progress towards Goal:: Met Goal #3: Right knee active extension -2 degrees. Goal to be met by: 07/07/18 Progress towards Goal:: Met Goal #4: Right knee active flexion to 95 degrees. Goal to be met by: 07/07/18 Progress towards Goal:: Met Exchange Teller Goals Goal #1: Pt knows HEP and to continue ex's to maintain functional level at D/C. Goal to be met by: 08/07/18 Progress towards goal: Met Goal #2: Score on LE scale improved to <39% disability. Goal to be met by: 08/07/18 Progress towards goal: Not Met Goal #3: Pt able to perform all selfcare and ADL's independently. Goal to be met by: 08/07/18 Progress towards goal: Met Goal #4: Pt to amb. without assistive device, community distances w/ min. gt dev. Goal to be met by: 08/07/18 Progress towards goal: Partially Met Comments: Uses straight cane for community distances at this time with min. gt deviat Plan Reason for Discharge:: No Further Skilled Therapy Indicated
== END 2018-07-25 23:59 ==
PROVIDERS: ATTEND Orthopaedic Surgery
DX: Z47.1 Aftercare following joint replacement surgery (principal); Z96.651 Presence of right artificial knee joint; M25.561 Pain in right knee; M25.461 Effusion, right knee; M25.661 Stiffness of right knee, not elsewhere classified; R26.81 Unsteadiness on feet

== ENCOUNTER 2019-04-24 09:00 | Outpatient (RCR) ==
--- NOTE | 2019-04-01 16:05 | RS.OPPTEV2 ---
Date of Note: 04/01/19 Visit #: 1 Number of visits approved by Insurance: n/a Date of Evaluation: 04/01/19 Payer Source: MEDICARE Surgery Performed?: Yes (cervical fusion C 4, 5, 6 01/27/19) Date of Procedure: 01/27/19 Treatment Diagnosis: cervical pain, DDD, cervical spondylosis Prior Level of Function.....Patient was independent with: ADL's, Self Care, Caregiving, Ambulation/Mobility, Community Integration/Access Level of Function: Prior to the onset of her symptoms in 2016, she was fully independent in all daily activities and reports being very strong. Functional Limitations: Sleep, ADL's, Reaching, Pushing, Pulling, Lifting, Carrying Current Subjective/complaints:: pt states that MD weaned her off her gabapentin and now she has constant burning pain in B hands. States she is also having constant pain in cervical spine. Treatment Side (optional): N/A *Precautions: Cervical spine fusion 02/04/18 Medical History Medical History: Hypertension, Arthritis Medical History Comments:: osteoporosis Surgical History: Knee Replacement, Hip Replacement Surgical History Comments:: carpal tunnel repair B hands, achilles tendon repair LLE, cervical fusion 5, 6, 7 01/2018, breast surgery, bladder tie up. Smoking Status: Former smoker Hx Home Medications: vit D, lisinopril, occasionally takes oxycodone. Patient's Goals: decrease pain in cervical spine and B hands Pain Assessment - Pain Description Pain Location: B hands Pain Description: Burning Current Pain Intensity: 8/10 Other Comments regarding Pain:: pt also with cervical pain 4/10 Functional Outcome Measure Neck Disability Index: 16 - G Codes & Severity Modifier G Codes & Modifier: n/a Source of G Code score: n/a Observation - Observation Posture: Forward Head, Rounded Shoulders, Increased Thoracic Kyphosis, Decreased Cervical Lordosis Handedness: Right Gait - Gait Pattern General Gait Pattern Observation: No Deviations/Normal General Range of Motion: BUE WFL's. BLE WFL's Muscle Strength: BUE shld flex 4/5, elbow flex/ext 4+/5, decrease investigator fraud strength. BLE grossly 4+/5 - ROM Cervical Spine Range of Motion Limitations: Soft Tissue Tightness, Muscle Weakness, Pain Comments: Cervical ext WFL's. Cervical Flex limited with discomfort, decreased R and L lat side bending L limited more than R. R rotation limited with "popping " per patient. - Strength Cervical Extension: 4- Good- Cervical Flexion: 3- Fair- Cervical Lateral Flexion: 3- Fair- Cervical Rotation: 3 Fair Palpation Palpation Findings: Tenderness, Muscle Guarding Comments:: pt presents with tenderness and muscle guarding cervical paraspinals. Sensation - Sensation Right Upper Extremity: Impaired (burning parasthesia) Left Upper Extremity: Impaired (burning parasthesia) Right Lower Extremity: Intact/Normal Left Lower Extremity: Intact/Normal Balance - Sitting Balance Static Sitting Balance: Normal Dynamic Sitting Balance: Normal - Standing Balance Static Standing Balance: Good Dynamic Standing Balance: Good - Treatment Modality: Electrical Stim Unattended Parameters/Method Applied: IFC x 20 mins at 11ma Treatment Area: cervical/upper trap Patient Position: Sitting - Heat/Cryotherapy Treatment: Hot Pack Comments:: cervical Interventions - Exercise/Activities/Manual Therapy Exercises/Activities: pt performed cervical retraction, gentle AROM cervical spine. Manual Therapy: NA HOME EXERCISE PROGRAM: pt given written HEP including: cervical retraction, gentle cervical ROM - Charges Timed Code Treatment Minutes: 51 Total Treatment Time: 62 Procedures billed for this date of service:: eval med, estim unattended, hot pack EVALUATION COMPLEXITY LEVEL EVALUATION COMPLEXITY LEVEL: HISTORY: Medium, EXAM OF BODY SYSTEMS: Medium, CLINICAL PRESENTATION: Medium, CLINICAL DECISION MAKING: Medium Assessment Assessment: pt presents with decreased cervical ROM, strength, as well as pain in cervical spine with radicular pain into B hands. pt with muscle guarding and tenderness in cervical paraspinals. Patient Education: Home Exercise Program, Education of Plan of Care Rehab Potential: Good Short Term Goals Goal #1: Pt independent with initial HEP. Goal to be met by: 04/15/19 Goal #2: Decrease pain in cervical spine and hands Goal to be met by: 04/15/19 Goal #3: Cervical flex improved to WFL's Goal to be met by: 04/15/19 Goal #4: . [facility] Goals Goal #1: Improve neck disability index to < 12 Goal to be met by: 05/01/19 Goal #2: pt able to perform self care and normal daily activities with less pain Goal to be met by: 05/01/19 Goal #3: Cervical ROM WFL's to allow pt to perform normal activities Goal to be met by: 05/01/19 Plan - Treatment to be Provided Procedures: Therapeutic Exercises, Therapeutic Activity, Gait Training, Neuromuscular Rehab, Manual Therapy, Massage, Patient Education Modalities: Electrical Stimulation, Cryotherapy, Hot Packs - Treatment Plan Frequency: 3 X week Duration: 4 weeks Dates of Sales Merchandiser Goals: 05/01/19 Expiration date of current Insurance Approval:: n/a - Treatment Code (1) Bilateral arm weakness Code(s): M62.81 - MUSCLE WEAKNESS (GENERALIZED) (2) Cervical radicular pain Code(s): M54.12 - RADICULOPATHY, CERVICAL REGION (3) Cervical stenosis of spinal canal Code(s): M48.02 - SPINAL STENOSIS, CERVICAL REGION
--- NOTE | 2019-04-02 08:45 | RS.CSNOTE ---
PT Case Note Date of Note: 04/02/19 Title of document: Phone call to MD. Note: Called and spoke with Anai with Dr. Costa's office and she stated it is ok to try light resistance such as theraband for UE strengthening. Number of visits approved by Insurance: n/a Expiration date of current Insurance Approval:: n/a
--- NOTE | 2019-04-08 09:18 | RS.OPPTDN ---
Subjective Date of Note: 04/06/19 Visit #: 2 Number of visits approved by Insurance: na Date of Evaluation: 04/01/19 Payer Source: MEDICARE Treatment Diagnosis: cervical pain, DDD, cervical spondylosis Current Subjective/complaints:: Patient reports she has more muscle tension than pain in the neck and upper traps. States headaches are a problem, and she feels this is related to muscle tension. *Precautions: Cervical spine fusion 02/04/18 Pain Assessment - Pain Description Pain Location: neck and upper traps Pain Description: Dull, Aching Current Pain Intensity: mild, does not rate on scale - Treatment Modality: Electrical Stim Unattended Parameters/Method Applied: [id number] HVGC to 145p.v. with large pads along the cervical paraspinals to the upper trap trigger points with HP prior to MT and EX. Patient Position: Sitting - Heat/Cryotherapy Treatment: Hot Pack (with Estim ) Interventions - Exercise/Activities/Manual Therapy Exercises/Activities: Assisted lateral cervical flexion and rotation, cervical retraction. Began resisted bilateral biceps curl with yellow theraband. Total minutes of Exercise: 9mins Manual Therapy: [id number] Soft tissue mobilization and myofascial release along the bilateral cervical paraspinals and throughout upper traps. Trigger point release at bilateral traps and left mid cervical paraspinals. Total minutes of Manual Therapy: 17mins HOME EXERCISE PROGRAM: pt given written HEP including: cervical retraction, gentle cervical ROM - Charges Timed Code Treatment Minutes: 26mins Total Treatment Time: 46mins Procedures billed for this date of service:: HP, Estim uattended, MT, EX Assessment: Patient responds well to modalities and progressive manual therapy. Patient Education: Body/Joint mechanics, Home Exercise Program Patient demonstrates compliance with HEP?: Yes Short Term Goals Goal #1: Pt independent with initial HEP. Goal to be met by: 04/15/19 Goal #2: Decrease pain in cervical spine and hands Goal to be met by: 04/15/19 Goal #3: Cervical flex improved to WFL's Goal to be met by: 04/15/19 Goal #4: . [facility]pc Goals Goal #1: Improve neck disability index to < 12 Goal to be met by: 05/01/19 Goal #2: pt able to perform self care and normal daily activities with less pain Goal to be met by: 05/01/19 Goal #3: Cervical ROM WFL's to allow pt to perform normal activities Goal to be met by: 05/01/19 Goal #4: Pt to amb. without assistive device, community distances w/ min. gt dev. Goal to be met by: 08/07/18 Progress towards goal: Partially Met Plan Dates of Boarder Steam Goals: 05/01/19 Expiration date of current Insurance Approval:: 05/01/19 PLAN: Continue modalities and progress exercise to reduce pain and increase functional activity level.
--- NOTE | 2019-04-08 10:43 | RS.OPPTDN ---
Subjective Date of Note: 04/08/19 Visit #: 3 Number of visits approved by Insurance: na Date of Evaluation: 04/01/19 Payer Source: MEDICARE Treatment Diagnosis: cervical pain, DDD, cervical spondylosis Current Subjective/complaints:: Patient reports an increase in soreness following last session, but feels her cervical rotation has improved. *Precautions: Cervical spine fusion 02/04/18 Pain Assessment - Pain Description Pain Location: neck, upper traps, mid scapular musculature Pain Description: Tightness Current Pain Intensity: mild - Treatment Modality: Electrical Stim Unattended Parameters/Method Applied: [id number] HVGC to 135p.v. with 4 small pads along bilateral cervical paraspinals and trap trigger points with HP prior to MT. Patient Position: Sitting - Heat/Cryotherapy Treatment: Hot Pack (with Estim ) Interventions - Exercise/Activities/Manual Therapy Exercises/Activities: Assisted lateral cervical flexion and rotation, cervical retraction. Began mid scapular stretch with UE across midline. PROM of bilateral shoulder joints into flexion, scaption, abduction, and horizontal abduction. Total minutes of Exercise: 8mins Manual Therapy: [id number] Soft tissue mobilization and myofascial release along the bilateral cervical paraspinals and throughout upper traps. Trigger point release at bilateral traps and left mid cervical paraspinals. Total minutes of Manual Therapy: 20mins HOME EXERCISE PROGRAM: pt given written HEP including: cervical retraction, gentle cervical ROM - Charges Timed Code Treatment Minutes: 28mins Total Treatment Time: 52mins Procedures billed for this date of service:: HP, Estim unattended, MT, EX Assessment: Patient reports good response to initial treatment and presents as motivated to progress exercise. Patient Education: Body/Joint mechanics, Home Exercise Program, Home Safety, Activity Modification Patient demonstrates compliance with HEP?: Yes Short Term Goals Goal #1: Pt independent with initial HEP. Goal to be met by: 04/15/19 Progress towards Goal:: Progressing Goal #2: Decrease pain in cervical spine and hands Goal to be met by: 04/15/19 Progress towards Goal:: Progressing Goal #3: Cervical flex improved to WFL's Goal to be met by: 04/15/19 Progress towards Goal:: Progressing Goal #4: . Spotter Goals Goal #1: Improve neck disability index to < 12 Goal to be met by: 05/01/19 Goal #2: pt able to perform self care and normal daily activities with less pain Goal to be met by: 05/01/19 Goal #3: Cervical ROM WFL's to allow pt to perform normal activities Goal to be met by: 05/01/19 Goal #4: Pt to amb. without assistive device, community distances w/ min. gt dev. Goal to be met by: 08/07/18 Progress towards goal: Partially Met Plan Dates of Spotter Goals: 05/01/19 Expiration date of current Insurance Approval:: 05/01/19 PLAN: Continue modalities, manual therapy, and exercise to increase flexibility and functional activity level.
--- NOTE | 2019-04-14 11:15 | RS.OPPTDN ---
Subjective Date of Note: 04/14/19 Visit #: 4 Number of visits approved by Insurance: na Date of Evaluation: 04/01/19 Payer Source: MEDICARE Treatment Diagnosis: cervical pain, DDD, cervical spondylosis Current Subjective/complaints:: Patient states she can tell she has not been to therapy in a few days. States muscle spasms in upper traps and neck have increased. Reports feeling better after treatment and having increased flexibility. *Precautions: Cervical spine fusion 02/04/18 Pain Assessment - Pain Description Pain Location: neck and upper traps Pain Description: Tightness Current Pain Intensity: mild - Treatment Modality: Electrical Stim Unattended Parameters/Method Applied: [id number] HVGC to 140p.v. 4 small pads to cervical paraspinals and upper trap trigger points with HP. Patient Position: Sitting - Heat/Cryotherapy Treatment: Hot Pack (with Estim ) Interventions - Exercise/Activities/Manual Therapy Exercises/Activities: Assisted lateral cervical flexion and rotation, cervical retraction. Total minutes of Exercise: 4mins Manual Therapy: [id number] Soft tissue mobilization and myofascial release along the bilateral cervical paraspinals and throughout upper traps. Trigger point release at bilateral traps and left mid cervical paraspinals. Total minutes of Manual Therapy: 23mins HOME EXERCISE PROGRAM: pt given written HEP including: cervical retraction, gentle cervical ROM - Objective Findings Observations,measurements,etc.: Assisted cervical rotation to approx 45 degrees bilaterally, with patient reporting less discomfort - Charges Timed Code Treatment Minutes: 27mins Total Treatment Time: 53mins Procedures billed for this date of service:: HP, Extim unattended, MTx2 Assessment: Pt reporting good respinse to treatment with decreased pain and increase flexibility. Patient Education: Education of diagnosis, Body/Joint mechanics, Home Exercise Program Patient demonstrates compliance with HEP?: Yes Short Term Goals Goal #1: Pt independent with initial HEP. Goal to be met by: 04/15/19 Progress towards Goal:: Progressing Goal #2: Decrease pain in cervical spine and hands Goal to be met by: 04/15/19 Progress towards Goal:: Progressing Goal #3: Cervical flex improved to WFL's Goal to be met by: 04/15/19 Progress towards Goal:: Progressing Goal #4: . Shelter Goals Goal #1: Improve neck disability index to < 12 Goal to be met by: 05/01/19 Goal #2: pt able to perform self care and normal daily activities with less pain Goal to be met by: 05/01/19 Goal #3: Cervical ROM WFL's to allow pt to perform normal activities Goal to be met by: 05/01/19 Goal #4: Pt to amb. without assistive device, community distances w/ min. gt dev. Goal to be met by: 08/07/18 Progress towards goal: Partially Met Plan Dates of Elementary School Registrar Goals: 05/01/19 Expiration date of current Insurance Approval:: 05/01/19 PLAN: Continue modalities, manual therapy, and exercise to reduce pain and increase functional activity level.
--- NOTE | 2019-04-15 09:57 | RS.OPPTDN ---
Subjective Date of Note: 04/15/19 Visit #: 5 Number of visits approved by Insurance: na Date of Evaluation: 04/01/19 Payer Source: MEDICARE Treatment Diagnosis: cervical pain, DDD, cervical spondylosis Current Subjective/complaints:: Patient reports stiffness in neck, occasional sharp pain in the upper arms, and numbness in the fingers of the bilateral hands. States she is feeling better with treatment and is seeing some improvement with neck ROM. *Precautions: Cervical spine fusion 02/04/18 Pain Assessment - Pain Description Pain Location: neck, upper arms, hands Pain Description: Tightness, Sharp, Aching Current Pain Intensity: 10 - Treatment Modality: Electrical Stim Unattended Parameters/Method Applied: [id number] HVGC to 145 p.v. with 4 small pads to neck and upper traps with HP. Patient Position: Sitting - Heat/Cryotherapy Treatment: Hot Pack (with Estim ) Interventions - Exercise/Activities/Manual Therapy Exercises/Activities: Assisted lateral cervical flexion and rotation, cervical retraction. Began isometric cervical retraction and cervical lateral flexion, all in neutral, sets of 5reps with manual resistance and cues. Shoulder shrugs and scap pro/retraction. Mid scap stretch with UE across midline. Total minutes of Exercise: 10mins Manual Therapy: [id number] Soft tissue mobilization and myofascial release along the bilateral cervical paraspinals and throughout upper traps. Trigger point release at bilateral traps and left mid cervical paraspinals. Total minutes of Manual Therapy: 29mins HOME EXERCISE PROGRAM: pt given written HEP including: cervical retraction, gentle cervical ROM - Charges Timed Code Treatment Minutes: 29mins Total Treatment Time: 52mins Procedures billed for this date of service:: HP, Estim unattended, MT, EX Assessment: Patient reporting good response to treatment and appears to be working on HEP. Patient Education: Body/Joint mechanics, Home Exercise Program, Activity Modification Patient demonstrates compliance with HEP?: Yes Short Term Goals Goal #1: Pt independent with initial HEP. Goal to be met by: 04/15/19 Progress towards Goal:: Progressing Goal #2: Decrease pain in cervical spine and hands Goal to be met by: 04/15/19 Progress towards Goal:: Progressing Goal #3: Cervical flex improved to WFL's Goal to be met by: 04/15/19 Progress towards Goal:: Progressing Goal #4: . [facility]dc Goals Goal #1: Improve neck disability index to < 12 Goal to be met by: 05/01/19 Goal #2: pt able to perform self care and normal daily activities with less pain Goal to be met by: 05/01/19 Goal #3: Cervical ROM WFL's to allow pt to perform normal activities Goal to be met by: 05/01/19 Progress towards goal: Progressing Goal #4: Pt to amb. without assistive device, community distances w/ min. gt dev. Goal to be met by: 08/07/18 Progress towards goal: Partially Met Plan Dates of Fdc Goals: 05/01/19 Expiration date of current Insurance Approval:: 05/01/19 PLAN: Continue modalities, manual therapy, and exercise to reduce pain and increase ADL's.
--- NOTE | 2019-04-17 11:01 | RS.OPPTDN ---
Subjective Date of Note: 04/17/19 Visit #: 6 Number of visits approved by Insurance: na Date of Evaluation: 04/01/19 Payer Source: MEDICARE Treatment Diagnosis: cervical pain, DDD, cervical spondylosis Current Subjective/complaints:: Patient reports therapy is helping with muscle tightness and she feels she has improved ROM. *Precautions: Cervical spine fusion 02/04/18 Pain Assessment - Pain Description Pain Location: neck and shoulders Pain Description: Tightness Current Pain Intensity: mild - Treatment Modality: Electrical Stim Unattended Parameters/Method Applied: [id number] HVGC to 145p.v. with 4 small pads along each cervical paraspinal to the trap trigger points with HP prior to MT and EX. Patient Position: Sitting - Heat/Cryotherapy Treatment: Hot Pack (with Estim ) Interventions - Exercise/Activities/Manual Therapy Exercises/Activities: Assisted lateral cervical flexion and rotation, cervical retraction. Manually resisted isometric cervical retraction and cervical lateral flexion, all in neutral, sets of 5reps. Shoulder shrugs and scap pro/ retraction. Began isometric shoulder IR with ball between hands. Isometric shoulder add with ball, each side. Wand for active shoulder flexion just above shoulder height. Red theraband for scap retraction, 10reps. Total minutes of Exercise: 10mins Manual Therapy: [id number] Soft tissue mobilization and myofascial release along the bilateral cervical paraspinals and throughout upper traps. Trigger point release at bilateral traps and left mid cervical paraspinals. Total minutes of Manual Therapy: 21mins HOME EXERCISE PROGRAM: pt given written HEP including: cervical retraction, gentle cervical ROM - Charges Timed Code Treatment Minutes: 31mins Total Treatment Time: 54mins Procedures billed for this date of service:: HP, Estim unattended, MT, EX Assessment: Patient responding well to treatment with reports of decreased pain , increase motion, and the ability to increase exercises. Patient Education: Body/Joint mechanics, Home Exercise Program, Home Safety, Activity Modification Comments: Pt given red theraband for resisted scap retraction in HEP. Patient demonstrates compliance with HEP?: Yes Short Term Goals Goal #1: Pt independent with initial HEP. Goal to be met by: 04/15/19 Progress towards Goal:: Progressing Goal #2: Decrease pain in cervical spine and hands Goal to be met by: 04/15/19 Progress towards Goal:: Progressing Goal #3: Cervical flex improved to WFL's Goal to be met by: 04/15/19 Progress towards Goal:: Progressing Goal #4: . Correction Goals Goal #1: Improve neck disability index to < 12 Goal to be met by: 05/01/19 Goal #2: pt able to perform self care and normal daily activities with less pain Goal to be met by: 05/01/19 Goal #3: Cervical ROM WFL's to allow pt to perform normal activities Goal to be met by: 05/01/19 Progress towards goal: Progressing Goal #4: Pt to amb. without assistive device, community distances w/ min. gt dev. Goal to be met by: 08/07/18 Progress towards goal: Partially Met Plan Dates of Echo Technician Goals: 05/01/19 Expiration date of current Insurance Approval:: 05/01/19 PLAN: Continue modalities and manual therapy, progress exercise to increase functional activity level.
--- NOTE | 2019-04-21 16:33 | RS.OPPTDN ---
Subjective Date of Note: 04/21/19 Visit #: 7 Number of visits approved by Insurance: na Date of Evaluation: 04/01/19 Payer Source: MEDICARE Treatment Diagnosis: cervical pain, DDD, cervical spondylosis Current Subjective/complaints:: Patient reports increase muscle tension in the neck and shoulders today, but good progress overall. States she is working on HEP as instructed. *Precautions: Cervical spine fusion 02/04/18 Pain Assessment - Pain Description Pain Location: neck and upper traps, into bilateral upper arms at times Pain Description: Tightness Pain Description: stiffness Current Pain Intensity: mild - Treatment Modality: Electrical Stim Unattended Parameters/Method Applied: [id number] HVGC to 155p.v. with 4 small pads to the bilateral cervical paraspinals and upper traps with HP prior to MT and EX. Patient Position: Sitting - Heat/Cryotherapy Treatment: Hot Pack (with Estim ) Interventions - Exercise/Activities/Manual Therapy Exercises/Activities: Assisted lateral cervical flexion and rotation, cervical retraction. Manually resisted isometric cervical retraction and cervical lateral flexion, all in neutral, sets of 5reps. Shoulder shrugs and scap pro/ retraction. 3# wand for active shoulder flexion just above shoulder height. Red theraband for scap retraction, 2s/10reps. Yellow theraband for single UE scaption over head, 2s/5reps each side. Yellow theraband for horizontal shoulder abduction, 10reps. Total minutes of Exercise: 10mins Manual Therapy: [id number] Soft tissue mobilization and myofascial release along the bilateral cervical paraspinals and throughout upper traps. Trigger point release at bilateral traps and left mid cervical paraspinals. Total minutes of Manual Therapy: 18mins HOME EXERCISE PROGRAM: pt given written HEP including: cervical retraction, gentle cervical ROM - Charges Timed Code Treatment Minutes: 28mins Total Treatment Time: 53mins Procedures billed for this date of service:: HP, Estim unattended, MT, EX Assessment: Pt progressing with gentle strengthening exercises. Patient Education: Body/Joint mechanics, Home Exercise Program, Home Safety Patient demonstrates compliance with HEP?: Yes Short Term Goals Goal #1: Pt independent with initial HEP. Goal to be met by: 04/15/19 Progress towards Goal:: Met Goal #2: Decrease pain in cervical spine and hands Goal to be met by: 04/15/19 Progress towards Goal:: Progressing Goal #3: Cervical flex improved to WFL's Goal to be met by: 04/15/19 Progress towards Goal:: Progressing Goal #4: . Residential Goals Goal #1: Improve neck disability index to < 12 Goal to be met by: 05/01/19 Goal #2: pt able to perform self care and normal daily activities with less pain Goal to be met by: 05/01/19 Progress towards goal: Progressing Goal #3: Cervical ROM WFL's to allow pt to perform normal activities Goal to be met by: 05/01/19 Progress towards goal: Progressing Goal #4: Pt to amb. without assistive device, community distances w/ min. gt dev. Goal to be met by: 08/07/18 Progress towards goal: Partially Met Plan Dates of Furrier Designer Goals: 05/01/19 Expiration date of current Insurance Approval:: 05/01/19 PLAN: Continue modalities and progress exercise to increase patients functional activity level.
--- NOTE | 2019-04-22 12:16 | RS.OPPTDN ---
Subjective Date of Note: 04/22/19 Visit #: 8 Number of visits approved by Insurance: na Date of Evaluation: 04/01/19 Payer Source: MEDICARE Treatment Diagnosis: cervical pain, DDD, cervical spondylosis Current Subjective/complaints:: Reports she is doing more activities around her home, but avoids lifting anything that is heavy. Reports continued improvement in neck ROM. States she working on HEP. *Precautions: Cervical spine fusion 02/04/18 Pain Assessment - Pain Description Pain Location: neck, upper traps Pain Description: Tightness Current Pain Intensity: mild - Treatment Modality: Electrical Stim Unattended Parameters/Method Applied: [id number] HVGC to 130p.v. to the B cerv paraspinals and UT's with HP prior to MT and EX. Patient Position: Sitting - Heat/Cryotherapy Treatment: Hot Pack (with Estim) Interventions - Exercise/Activities/Manual Therapy Exercises/Activities: Assisted lateral cervical flexion and rotation, cervical retraction. Manually resisted isometric cervical retraction and cervical lateral flexion, all in neutral, sets of 5reps. Shoulder shrugs and scap pro/ retraction. 3# wand for active shoulder flexion just above shoulder height. Red theraband for scap retraction, 2s/10reps. Yellow theraband horizontal shoulder abduction, 10reps. Isometric shoulder IR with ball between hands. Hold ball and performs overhead reaching. Total minutes of Exercise: 11mins Manual Therapy: [id number] Soft tissue mobilization and myofascial release along the bilateral cervical paraspinals and throughout upper traps. Trigger point release at bilateral traps and mid right scap border. Total minutes of Manual Therapy: 17mins HOME EXERCISE PROGRAM: pt given written HEP including: cervical retraction, gentle cervical ROM - Charges Timed Code Treatment Minutes: 28mins Total Treatment Time: 51mins Procedures billed for this date of service:: HP, Estim unattended, MT, EX Assessment: Pt reporting progress with ADL's and increasing strengthening exercise in this department. Patient Education: Body/Joint mechanics, Home Exercise Program, Home Safety, Activity Modification Patient demonstrates compliance with HEP?: Yes Short Term Goals Goal #1: Pt independent with initial HEP. Goal to be met by: 04/15/19 Progress towards Goal:: Met Goal #2: Decrease pain in cervical spine and hands Goal to be met by: 04/15/19 Progress towards Goal:: Progressing Goal #3: Cervical flex improved to WFL's Goal to be met by: 04/15/19 Progress towards Goal:: Progressing Goal #4: . Cycle Counter Goals Goal #1: Improve neck disability index to < 12 Goal to be met by: 05/01/19 Goal #2: pt able to perform self care and normal daily activities with less pain Goal to be met by: 05/01/19 Progress towards goal: Progressing Goal #3: Cervical ROM WFL's to allow pt to perform normal activities Goal to be met by: 05/01/19 Progress towards goal: Progressing Goal #4: Pt to amb. without assistive device, community distances w/ min. gt dev. Goal to be met by: 08/07/18 Progress towards goal: Partially Met Plan Dates of Cycle Counter Goals: 05/01/19 Expiration date of current Insurance Approval:: 05/01/19 PLAN: Continue modalties and progress exercise to reduce pain and increase functional activity level.
--- NOTE | 2019-04-24 14:15 | RS.OPPTDN ---
Subjective Date of Note: 04/24/19 Visit #: 9 Number of visits approved by Insurance: na Date of Evaluation: 04/01/19 Payer Source: MEDICARE Treatment Diagnosis: cervical pain, DDD, cervical spondylosis Current Subjective/complaints:: Patient reports improvement with daily activities including reaching to higher shelves in kitchen. *Precautions: Cervical spine fusion 02/04/18 Pain Assessment - Pain Description Pain Location: neck and upper traps Pain Description: Tightness Pain Description: muscle soreness Current Pain Intensity: mild - Treatment Modality: Electrical Stim Unattended Parameters/Method Applied: [id number] HVGC to 220p.v to the bilateral cervical paraspinals and upper trap trigger points with HP. Patient Position: Sitting - Heat/Cryotherapy Treatment: Hot Pack (with Estim ) Interventions - Exercise/Activities/Manual Therapy Exercises/Activities: Assisted lateral cervical flexion and rotation, cervical retraction. Manually resisted isometric cervical retraction and cervical lateral flexion, all in neutral. Shoulder shrugs and scap pro/retraction. 3# wand for active shoulder flexion just above shoulder height. Red theraband for scap retraction, 2s/10reps. Yellow theraband horizontal shoulder abduction, 10reps. Yellow theraband for bilateral shoulder scaption. Hold ball and performs overhead reaching and chest presses. Standing with back to wall works on postural correction, scap retraction, and bilateral shoulder flexion with wand. Total minutes of Exercise: 14mins Manual Therapy: [id number] Soft tissue mobilization and myofascial release along the bilateral cervical paraspinals and throughout upper traps. Trigger point release at bilateral traps and mid right scap border. Total minutes of Manual Therapy: 17mins HOME EXERCISE PROGRAM: pt given written HEP including: cervical retraction, gentle cervical ROM - Charges Timed Code Treatment Minutes: 31mins Total Treatment Time: 54mins Procedures billed for this date of service:: HP, Estim unattended, MT, EX Assessment: Patient progressing with postural correction and strengthening exercises and reports progress with ADL's. Patient Education: Body/Joint mechanics, Home Exercise Program, Home Safety, Activity Modification Patient demonstrates compliance with HEP?: Yes Short Term Goals Goal #1: Pt independent with initial HEP. Goal to be met by: 04/15/19 Progress towards Goal:: Met Goal #2: Decrease pain in cervical spine and hands Goal to be met by: 04/15/19 Progress towards Goal:: Progressing Goal #3: Cervical flex improved to WFL's Goal to be met by: 04/15/19 Progress towards Goal:: Progressing Goal #4: . Promotion Specialist Goals Goal #1: Improve neck disability index to < 12 Goal to be met by: 05/01/19 Goal #2: pt able to perform self care and normal daily activities with less pain Goal to be met by: 05/01/19 Progress towards goal: Partially Met Goal #3: Cervical ROM WFL's to allow pt to perform normal activities Goal to be met by: 05/01/19 Progress towards goal: Progressing Goal #4: . Plan Dates of Halfway Goals: 05/01/19 Expiration date of current Insurance Approval:: 05/01/19 PLAN: Continue modalities and progress exercise to increase patient functional activity level.
== END 2019-04-24 23:59 ==
PROVIDERS: ATTEND Neurological Surgery
DX: M50.30 Other cervical disc degeneration, unspecified cervical region (principal); M47.12 Other spondylosis with myelopathy, cervical region